=== PATIENT | female | born 1950 | race Caucasian/White ===

== ENCOUNTER 2019-05-19 09:17 | Inpatient (IN) | payer MEDICARE ==
[2019-05-19 09:53] LABS: #Basophils 0.1 thou/uL (0.0-0.2); #Eosinphils 0.1 thou/uL (0.0-0.7); #Lymphocytes 2.4 thou/uL (1.20-3.40); #Monocytes 0.6 thou/uL (0.11-0.59); #Neutrophils 11.7 thou/uL (1.40-6.50); %Basophils 0.3 % (0.0-1.0); %Eosinophils 0.3 % (0.0-10.0); %Lymphocytes 16.1 % (21.0-51.0); %Monocytes 4.1 % (0.0-10.0); %Neutrophils 79.1 % (42.0-75.0); Hemoglobin 15.1 g/dL (12.0-16.0); Mean Corpuscular HGB CONC 32.8 g/dL (32.0-36.0); Mean Corpuscular Hemoglobin 28.6 pg (27.0-31.0); Mean Corpuscular Volume 87.2 fL (78.0-98.0); Mean Platelet Volume 6.7 fL (7.4-10.4); Platelet Count 374 thou/uL (130-400); RBC Distribution Width 13.3 % (11.5-14.5); Red Blood Cell (RBC) Count 5.28 mill/uL (4.20-5.40); White Blood Cell (WBC) Count 14.8 thou/uL (4.8-10.8)
[2019-05-19] MEDS ORDERED: Morphine 4 MG/ML VIAL ONE (10:01)
[2019-05-19] MEDS ORDERED: Ondansetron PF 4 MG/2 ML Vial ONE (10:02)
[2019-05-19 10:09] LABS: ALT (SGPT) 33 U/L (8-55); AST (SGOT) 20 U/L (5-34); Albumin 4.6 g/dL (3.4-4.8); Alkaline Phosphatase 77 U/L (40-110); Anion Gap 17 mmol/L (10-20); BUN (Urea Nitrogen) 15 mg/dL (9.8-20.1); Bilirubin, Total 0.2 mg/dL (0.2-1.2); Calc. Creatinine Clearance 0 mL/min (70-130); Calcium 10.2 mg/dL (7.8-10.44); Carbon Dioxide 27 mmol/L (23-31); Chloride 97 mmol/L (98-107); Estimated GFR-MDRD 53; Globulin 2.9 g/dL (2.4-3.5); Glucose 141 mg/dL (80-115); Lipase 52 U/L (8-78); Protein, Total 7.5 g/dL (6.0-8.3); Sodium 137 mmol/L (136-145)
[2019-05-19 10:13] LABS: Bilirubin Negative (Negative); Blood, Urine Negative (Negative); Clarity Turbid (Clear); Glucose, Urine (Dipstick) Normal (Negative); Leukocyte 75 Leu/uL (Negative); Nitrite Negative (Negative); Protein, Urine (Dipstick) 20 mg/dL (Neg-Trace); Urobilinogen Normal mg/dL (Less than 2)
[2019-05-19 10:18] LABS: Bacteria/HPF 2+ HPF (None Seen); RBC/HPF None Seen HPF (0-3)
--- NOTE | 2019-05-19 10:31 | CT ---
CT Abdomen Pelvis W Con History: Epigastric pain Comparison: None. Findings: Lung bases are clear. No pericardial effusion. Abnormal hyperenhancement and because of the gastric antrum suggesting gastritis. Multiple stones within the dilated gallbladder with some mild wall thickening. There is also dilatati on of the intrahepatic and extrahepatic biliary system with the distal common bile duct measuring up to 8 mm. No hydronephrosis. No abnormal renal enhancing mass. No free fluid within the pelvis. Impression: Mild intrahepatic and extrahepatic biliary dilatation concerning for distal common bile duct stone. T he gallbladder is distended with wall thickening and numerous cholelithiasis likely, reservoir effect and less likely primary acute cholecystitis. ERCP or MRCP recommended as well as correlation w ith biliary enzymes.
[2019-05-19] MEDS ORDERED: Midazolam HCl 2 mg/2 ml Vial ONE (12:07)
[2019-05-19] MEDS ORDERED: Fentanyl 100 MCG/2 ML VIAL ONE ×6 (12:08→19:00)
[2019-05-19] MEDS ORDERED: Bupivacaine/Epinephrine 0.25% 30 ML VIAL ONE ×2 (12:15→16:48)
[2019-05-19] MEDS ORDERED: Iothalamate Meglumine 60% 50 ML VIAL FS ONE (12:15)
[2019-05-19] MEDS ORDERED: cefOXitin 2 GM VIAL ONE (12:38)
[2019-05-19] MEDS ORDERED: Sodium Chloride 0.9% 100 ML ONE (12:40)
[2019-05-19] MEDS ORDERED: SUGAMMADEX SODIUM 200 MG/2 ML VIAL ONE (14:17)
[2019-05-19] MEDS ORDERED: HYDROcodone/Acetaminophen 7.5/325 mg Tablet PO PRN ×2 (14:37)
[2019-05-19] MEDS ORDERED: Ondansetron PF 4 MG/2 ML Vial IVP PRN ×2 (14:37→20:16)
[2019-05-19] MEDS ORDERED: hydrALAZINE 20 MG/ML VIAL SLOW IVP PRN ×2 (14:37→20:16)
[2019-05-19] MEDS ORDERED: HumaLOG 300 UNITS/3 ML VIAL SC PRN ×2 (14:37→20:16)
[2019-05-19] MEDS ORDERED: Dextrose 5% in Water 1,000 ML IV PRN ×2 (14:37→20:16)
[2019-05-19] MEDS ORDERED: traMADol HCl 50 MG TAB PO PRN (14:37)
[2019-05-19] MEDS ORDERED: Mag-Al 1200 mg/1200 mg/30 ML UDCUP PO PRN ×2 (14:37→20:16)
[2019-05-19] MEDS ORDERED: Morphine 2 MG/ML SYRINGE SLOW IVP PRN (14:37)
[2019-05-19] MEDS ORDERED: Dextrose 50% Abboject 50 ML SYRINGE SLOW IVP PRN ×3 (14:37→20:16)
[2019-05-19] MEDS ORDERED: Morphine 4 MG/ML VIAL SLOW IVP PRN (14:37)
[2019-05-19] MEDS ORDERED: Calcium Carbonate 500 MG ChewTAB PO PRN ×2 (14:37→20:16)
[2019-05-19] MEDS ORDERED: Morphine 2 MG/ML SYRINGE ONE ×2 (14:58→15:11)
--- NOTE | 2019-05-19 15:05 | HP ---
CHIEF COMPLAINT: Cholecystitis. HISTORY OF PRESENT ILLNESS: This is a 69-year-old female with a history of upper abdominal pain, described as sharp 8/10, constant, and started after her hamburger for dinner last night. This is associated with nausea and vomiting. No diarrhea. She denies previous known history of gallstones, jaundice, or pancreatitis. PAST MEDICAL HISTORY: Includes tremors, GERD, peptic ulcer. PAST SURGICAL HISTORY: Includes appendectomy and . MEDICATIONS: Include, 1. Metoprolol. 2. Imipramine. 3. Mysoline. 4. Spironolactone. 5. Statin. 6. Abilify. ALLERGIES: METHOTREXATE. SOCIAL HISTORY: No smoking, alcohol, or other drugs. REVIEW OF SYSTEMS: Ten-system review of systems is otherwise negative unless described above. HEENT: Sclerae anicteric. Oropharynx clear. NECK: No lymphadenopathy. CHEST: Clear. HEART: Regular rate and rhythm. ABDOMEN: Soft. Tender right upper quadrant with localized guarding. No rebound. No abdominal or inguinal hernia. EXTREMITIES: No ischemia or edema to extremities. LABORATORY DATA: White blood cell count is elevated. Her liver function tests are normal. IMAGING STUDIES: CT scan shows dilated extra and intrahepatic bile ducts and gallstones, gallbladder wall thickening. ASSESSMENT: 1. Acute cholecystitis. 2. Tremor disorder. 3. Hypertension. PLAN: Laparoscopic cholecystectomy with intraoperative cholangiogram. Risks, benefits, and alternatives were discussed. She gives consent. We will do this today. 30 minutes spent in discussion and review of films with the patient. Job ID: [id number]
[2019-05-19] MEDS ORDERED: HYDROmorphone 2 MG/ML VIAL ONE (15:19)
--- NOTE | 2019-05-19 15:19 | OP ---
DATE OF PROCEDURE: 05/19/2019 PREOPERATIVE DIAGNOSIS: Acute cholecystitis. POSTOPERATIVE DIAGNOSIS: Acute cholecystitis. PROCEDURE PERFORMED: Laparoscopic cholecystectomy with attempted cholangiogram. ANESTHESIA: General. ESTIMATED BLOOD LOSS: None. COMPLICATIONS: None. SPECIMENS: Gallbladder. FINDINGS: Acute cholecystitis. DESCRIPTION OF PROCEDURE: The patient was taken to the operating room and laid supine on the operating room table. After general anesthetic was obtained, the abdomen was prepped and draped in a sterile fashion. Straight incision was made above the umbilicus. Cautery was used to dissect down to and score the fascia. Abdominal cavity was entered bluntly with a Laura clamp. Holding stitch of PDS placed on each side of the fascia. Siva trocar was placed. High-flow pneumoperitoneum was obtained. An upper midline 5 mm port and two right upper quadrant 5 mm ports were placed under direct visualization. The gallbladder was retracted from the gallbladder fossa. There was acute cholecystitis. Needle was used to decompress the gallbladder so it could be grasped. The peritoneum was opened anteriorly and posteriorly. Critical view of triangle was seen showing only the cystic duct and cystic artery branching medial to lateral and no other branching structures. The clip was placed on the cystic duct. A small ductotomy was made just proximal to that. Cholangiocatheter was brought in through a separate stab incision and a cholangiogram was attempted to be performed. The catheter cannot be passed into the cystic duct. There was obstruction down near its confluence with the common bile duct. Two clips were placed proximally and one distally, and the cystic duct was cut using laparoscopic scissors. Cautery was used to dissect the gallbladder and gallbladder fossa. Gallbladder was placed in an EndoCatch bag and brought out through the Siva. All port sites were infiltrated using local anesthetic. Meticulous hemostasis was obtained in the liver bed. There was no ongoing bleeding. The right upper quadrant was irrigated using sterile solution. All port sites were infiltrated using local anesthetic. All port sites were removed under camera visualization. Pneumoperitoneum was let down. PDS was used to close the fascial defect above the umbilicus. All incisions were irrigated and closed using 4-0 Monocryl and Dermabond. The patient was sent to Recovery room in stable condition. All instrument counts, needle counts, and lap counts were correct. Job ID: [id number]
[2019-05-19] MEDS ORDERED: Heparin 25,000 units/D5W 500 ML ONE (16:46)
--- NOTE | 2019-05-19 16:58 | PRG ---
DATE OF SERVICE: 05/19/2019 SUBJECTIVE: Mrs. Garcia remains hypotensive, tachycardic postop. She is pale and has a distended abdomen. PLAN: To return to the operating room emergency for laparoscopy. We will type and cross for 2 units. Job ID: [id number]
[2019-05-19] MEDS ORDERED: Norepinephrine 4 MG/4 ML VIAL ONE (17:08)
[2019-05-19] MEDS ORDERED: Phenylephrine HCL 10 MG/ML VIAL ONE (17:08)
[2019-05-19 17:15] LABS: Hemoglobin 11.4 g/dL (12.0-16.0)
[2019-05-19] MEDS ORDERED: Naloxone HCl 0.4 mg/ml Vial ONE (18:16)
[2019-05-19] MEDS ORDERED: Ondansetron HCl/PF 4 MG/2 ML Vial IVP PRN (18:36)
[2019-05-19] MEDS ORDERED: Promethazine HCl 25 MG/ML VIAL SLOW IVP PRN (18:36)
[2019-05-19] MEDS ORDERED: Promethazine HCl 25 MG/ML VIAL IM PRN (18:36)
[2019-05-19] MEDS ORDERED: Sodium Chloride 0.9% 1,000 ML IV SCH (18:45)
[2019-05-19] MEDS ORDERED: Fentanyl 100 MCG/2 ML VIAL SLOW IVP PRN (20:16)
[2019-05-19 20:34] VITALS: BMI 33.7
[2019-05-19] MEDS ORDERED: Non-Formulary Medication 1 EACH PO PRN (20:40)
[2019-05-19] MEDS ORDERED: Morphine Sulfate 2 MG/ML SYRINGE SLOW IVP PRN (20:40)
[2019-05-19] MEDS ORDERED: HYDROmorphone 2 MG/ML VIAL SLOW IVP PRN (20:40)
[2019-05-19] MEDS ORDERED: Primidone 50 MG TAB PO SCH (21:00)
[2019-05-19] MEDS ORDERED: Famotidine/PF 20 mg/2ml Vial SLOW IVP SCH (21:00)
[2019-05-19] MEDS ORDERED: Famotidine 20 MG TAB PO SCH (21:00)
[2019-05-19] MEDS: Sodium Chloride 0.9% 1,000 ML IV SCH (21:08)
[2019-05-19] MEDS: Fentanyl 100 MCG/2 ML VIAL SLOW IVP PRN ×2 (21:13→23:32)
[2019-05-19] MEDS: Famotidine/PF 20 mg/2ml Vial SLOW IVP SCH (21:13)
[2019-05-19] MEDS: Acetaminophen 1,000 MG in Premix Bag 1 BAG IVPB PRN (21:16)
[2019-05-19] MEDS: Famotidine 20 MG TAB PO SCH (22:39)
--- NOTE | 2019-05-19 23:52 | OP ---
DATE OF PROCEDURE: 05/19/2019 PREOPERATIVE DIAGNOSES: Postoperative hypotension and postoperative bleeding. POSTOPERATIVE DIAGNOSES: Postoperative hypotension and postoperative bleeding. PROCEDURES PERFORMED: Diagnostic laparoscopy, abdominal washout 700 mL of old blood, and control of bleeding to posterior cystic artery branch. ANESTHESIA: General. BLOOD LOSS: 700 mL of old blood. COMPLICATIONS: None. FINDINGS: There was a posterior branch of the cystic artery with pulsatile bleeding. The clips on the cystic duct and cystic artery were intact. There was no bleeding in the liver bed. No bleeding to the liver. No bleeding to the port sites or the falciform ligament. DESCRIPTION OF PROCEDURE: The patient was taken emergently from PACU back to the operating room. After general anesthetic was obtained, a Borges was placed. The abdomen was shaved, prepped, and draped in a sterile fashion. The incision above the umbilicus was reopened. The PDS suture was removed and the balloon trocar was able to be placed easily and the balloon inflated. High-flow pneumoperitoneum was obtained. The 3 upper abdominal 5-mm ports were reopened and five 10-mm ports were placed. There was a lot of old blood in the abdomen. This was appearing to try to clot. This was irrigated out up to the liver bed. In the bottom of the liver bed, in the area of the cystic duct and cystic artery, there was a pulsatile bleeder. This was a posterior cystic artery branch. This was clipped with 2 clips, it stopped. All the blood was irrigated out of the upper abdomen. The abdomen was irrigated using 2 L of sterile solution. Daryn and bleeding starch were placed in the liver bed. A 19 drain was brought out through the one of the right upper quadrant incisions and connected to a JULIETTE bulb. There was no bleeding from any other areas in the abdomen. All port sites were removed under direct visualization without bleeding. Pneumoperitoneum was let down. PDS was used to close the fascial defect above the umbilicus. All incisions were irrigated and closed using 4-0 Monocryl and Dermabond. The patient was sent to the recovery room stable. She will be ultimately stayed in the unit tonight. She did start 2 units of blood in the operating room. Job ID: [id number]
[2019-05-20] MEDS: Fentanyl 100 MCG/2 ML VIAL SLOW IVP PRN ×7 (01:55→22:12)
[2019-05-20] MEDS: Sodium Chloride 0.9% 1,000 ML IV SCH ×3 (03:19→22:11)
[2019-05-20] MEDS: Acetaminophen 1,000 MG in Premix Bag 1 BAG IVPB PRN ×2 (03:19→13:02)
[2019-05-20 07:29] LABS: ALT (SGPT) 289 U/L (8-55); AST (SGOT) 167 U/L (5-34); Albumin 2.8 g/dL (3.4-4.8); Alkaline Phosphatase 69 U/L (40-110); Anion Gap 12 mmol/L (10-20); BUN (Urea Nitrogen) 14 mg/dL (9.8-20.1); Bilirubin, Total 0.3 mg/dL (0.2-1.2); Calc. Creatinine Clearance 77 mL/min (70-130); Calcium 7.6 mg/dL (7.8-10.44); Carbon Dioxide 21 mmol/L (23-31); Chloride 109 mmol/L (98-107); Estimated GFR-MDRD 57; Globulin 2.1 g/dL (2.4-3.5); Glucose 157 mg/dL (80-115); Lipase 11 U/L (8-78); Potassium 4.6 mmol/L (3.5-5.1); Protein, Total 4.9 g/dL (6.0-8.3); Sodium 137 mmol/L (136-145)
--- NOTE | 2019-05-20 08:06 | PRG ---
DATE OF SERVICE: 05/20/2019 SUBJECTIVE: Ms. Garcia was off pressors overnight and hemodynamically stable. Her pulse remained in the 110s to 120s, but systolic blood pressure is over 110. She is complaining of pain. OBJECTIVE: VITAL SIGNS: Blood pressure is 107/55, pulse 123, respirations are 30, and O2 saturation 95% on 2 L. Urine output overnight is 470. JULIETTE drain 335, turning serosanguineous. ABDOMEN: Soft, minimally distended. LABORATORY DATA: Her CBC is still pending this morning. Her last hemoglobin was 11. Sodium 137, creatinine 0.97, glucose 157, bilirubin is normal, but her AST and ALT are up a little bit at 167 and 289. Her alkaline phosphatase is normal. Her lipase is normal. ASSESSMENT: Postop day 1, laparoscopic cholecystectomy for acute cholecystitis with emergent return to the operating room for bleeding, stable. PLAN: I do not know why her CBC is not resulted this morning. We will make sure that is done, transfuse if due to her tachycardia if the hemoglobin is less than 10. I will allow her to do clear liquids. Job ID: [id number]
[2019-05-20] MEDS: Famotidine 20 MG TAB PO SCH ×2 (08:27→20:44)
[2019-05-20] MEDS: HYDROcodone/Acetaminophen 7.5/325 mg Tablet PO PRN ×3 (08:39→20:43)
[2019-05-20] MEDS: Famotidine/PF 20 mg/2ml Vial SLOW IVP SCH ×2 (08:42→19:51)
[2019-05-20 09:00] LABS: #Basophils 0.1 thou/uL (0.0-0.2); #Lymphocytes 1.8 thou/uL (1.20-3.40); #Monocytes 0.7 thou/uL (0.11-0.59); #Neutrophils 10.8 thou/uL (1.40-6.50); %Basophils 0.4 % (0.0-1.0); %Eosinophils 0.2 % (0.0-10.0); %Lymphocytes 13.4 % (21.0-51.0); %Monocytes 5.4 % (0.0-10.0); %Neutrophils 80.7 % (42.0-75.0); Hemoglobin 11.2 g/dL (12.0-16.0); Mean Corpuscular HGB CONC 33.3 g/dL (32.0-36.0); Mean Corpuscular Hemoglobin 29.2 pg (27.0-31.0); Mean Corpuscular Volume 87.6 fL (78.0-98.0); Mean Platelet Volume 7.3 fL (7.4-10.4); Platelet Count 246 thou/uL (130-400); RBC Distribution Width 13.7 % (11.5-14.5); Red Blood Cell (RBC) Count 3.84 mill/uL (4.20-5.40); White Blood Cell (WBC) Count 13.3 thou/uL (4.8-10.8)
[2019-05-20] MEDS ORDERED: lamoTRIgine 25 MG TAB PO SCH (09:00)
[2019-05-20] MEDS ORDERED: ACITRETIN 25 MG PO SCH (09:00)
[2019-05-20] MEDS ORDERED: Aripiprazole 10 MG TAB PO SCH (09:00)
[2019-05-21] MEDS: Fentanyl 100 MCG/2 ML VIAL SLOW IVP PRN (04:50)
[2019-05-21] MEDS: Famotidine 20 MG TAB PO SCH ×2 (08:18→20:17)
[2019-05-21] MEDS: Famotidine/PF 20 mg/2ml Vial SLOW IVP SCH ×2 (08:19→21:00)
[2019-05-21] MEDS: HYDROcodone/Acetaminophen 7.5/325 mg Tablet PO PRN ×3 (08:19→20:16)
[2019-05-21 08:43] LABS: #Lymphocytes 1.6 thou/uL (1.20-3.40); #Monocytes 0.7 thou/uL (0.11-0.59); #Neutrophils 11.2 thou/uL (1.40-6.50); %Basophils 0.1 % (0.0-1.0); %Eosinophils 0.3 % (0.0-10.0); %Lymphocytes 12.1 % (21.0-51.0); %Monocytes 5.3 % (0.0-10.0); %Neutrophils 82.2 % (42.0-75.0); Hemoglobin 10.3 g/dL (12.0-16.0); Mean Corpuscular HGB CONC 33.5 g/dL (32.0-36.0); Mean Corpuscular Hemoglobin 29.4 pg (27.0-31.0); Mean Corpuscular Volume 87.7 fL (78.0-98.0); Mean Platelet Volume 6.9 fL (7.4-10.4); Platelet Count 199 thou/uL (130-400); RBC Distribution Width 13.4 % (11.5-14.5); White Blood Cell (WBC) Count 13.6 thou/uL (4.8-10.8)
--- NOTE | 2019-05-21 08:59 | PRG ---
DATE OF SERVICE: 05/21/2019 SUBJECTIVE: Ms. Garcia is complaining of pain at her drain site. She was up a few times yesterday. She is upset because her pain pills have not come yet this morning. She feels bloated, but she is hungry for more than the clear liquids. OBJECTIVE: VITAL SIGNS: She is still tachy at 110 to 120. She is afebrile. Blood pressure 120/69. Her drain output was 285 for the day. Borges has brisk output of 2200 for the day. ABDOMEN: Soft. It is distended. The wounds are healing well. JULIETTE drainage is turning serosanguineous. LABORATORY DATA: White blood cell count is 13, her hemoglobin is 10. Her chemistry is still pending at this time. ASSESSMENT: Postop laparoscopic cholecystectomy with take back for bleeding, now with tachycardia and complaints of pain, but stable drain output. PLAN: Await for liver function test results. I was not able to do a cholangiogram at the time of surgery, so if her liver function tests are more elevated today, she will need MRCP plus or minus GI consult with Dr. Longoria. Otherwise, we will advance her diet and make her ambulate better. Job ID: [id number]
[2019-05-21] MEDS ORDERED: ACITRETIN 10 MG PO SCH (09:00)
[2019-05-21 09:06] LABS: ALT (SGPT) 159 U/L (8-55); AST (SGOT) 64 U/L (5-34); Alkaline Phosphatase 71 U/L (40-110); Anion Gap 12 mmol/L (10-20); BUN (Urea Nitrogen) 9 mg/dL (9.8-20.1); Bilirubin, Total 0.3 mg/dL (0.2-1.2); Calc. Creatinine Clearance 101 mL/min (70-130); Calcium 8.4 mg/dL (7.8-10.44); Carbon Dioxide 21 mmol/L (23-31); Chloride 105 mmol/L (98-107); Estimated GFR-MDRD 78; Globulin 2.5 g/dL (2.4-3.5); Glucose 89 mg/dL (80-115); Potassium 4.2 mmol/L (3.5-5.1); Protein, Total 5.5 g/dL (6.0-8.3); Sodium 134 mmol/L (136-145)
[2019-05-21] MEDS: Sodium Chloride 0.9% 1,000 ML IV SCH ×2 (10:53→18:10)
[2019-05-22] MEDS: Sodium Chloride 0.9% 1,000 ML IV SCH ×2 (02:19→11:18)
[2019-05-22] MEDS: HYDROcodone/Acetaminophen 7.5/325 mg Tablet PO PRN ×3 (02:24→18:13)
[2019-05-22 05:41] LABS: ALT (SGPT) 118 U/L (8-55); AST (SGOT) 69 U/L (5-34); Albumin 2.6 g/dL (3.4-4.8); Alkaline Phosphatase 88 U/L (40-110); Anion Gap 12 mmol/L (10-20); BUN (Urea Nitrogen) 8 mg/dL (9.8-20.1); Bilirubin, Total 0.5 mg/dL (0.2-1.2); Calc. Creatinine Clearance 113 mL/min (70-130); Calcium 8.1 mg/dL (7.8-10.44); Carbon Dioxide 21 mmol/L (23-31); Chloride 109 mmol/L (98-107); Estimated GFR-MDRD 89; Globulin 2.4 g/dL (2.4-3.5); Glucose 97 mg/dL (80-115); Potassium 4.2 mmol/L (3.5-5.1); Sodium 138 mmol/L (136-145)
[2019-05-22 06:48] LABS: Hemoglobin 8.3 g/dL (12.0-16.0); Mean Corpuscular HGB CONC 32.6 g/dL (32.0-36.0); Mean Corpuscular Hemoglobin 28.8 pg (27.0-31.0); Mean Corpuscular Volume 88.4 fL (78.0-98.0); Mean Platelet Volume 7.4 fL (7.4-10.4); Platelet Count 195 thou/uL (130-400); RBC Distribution Width 13.3 % (11.5-14.5); Red Blood Cell (RBC) Count 2.86 mill/uL (4.20-5.40); White Blood Cell (WBC) Count 11.2 thou/uL (4.8-10.8)
--- NOTE | 2019-05-22 07:46 | PDOC.GSPN ---
Surgery Progress Note: Subj - Subjective Narrative: Patient is a 69 yof POD 3 complaining of pain and irritation of drainage site. The pain is described as 2/10 and worsens on movement. Laying still makes the pain better. The pain does not radiate and is described as irritating. She began passing flatus last night but has still yet to have a bowel movement. Endorses dizziness one time yesterday afternoon when she was sitting upright in her chair. Denies dizziness since episode. Denies chest pain, shortness of breath, sharp abdominal pain or leg swelling. Surgery Progress Note: Obj - Vital signs Vital signs: Vital Signs - Most Recent Temp Pulse Resp BP Pulse Ox 98.9 F 96 16 108/69 94 L 05/22/19 03:53 05/22/19 03:53 05/22/19 03:53 05/22/19 03:53 05/22/19 03:53 - Physical Exam General: no distress, other (Patient appears fatigued lying in bed but in no acute distress.) Cardiovascular: regular rate and rhythm Respiratory: clear to auscultation Abdomen: soft, non tender Wound: healing well, other (Tube is draining well) Surgery Progress Note: Results - Labs Result Diagrams: 05/22/19 04:04 05/22/19 04:04 Lab results: Laboratory Results - last 24 hr 05/21/19 05/22/19 05/22/19 20:23 04:04 04:04 WBC 11.2 H RBC 2.86 L Hgb 8.3 L Hct 25.3 L MCV 88.4 MCH 28.8 MCHC 32.6 RDW 13.3 Plt Count 195 MPV 7.4 Sodium 138 Potassium 4.2 Chloride 109 H Carbon Dioxide 21 L Anion Gap 12 BUN 8 L Creatinine 0.66 Estimated GFR (MDRD) 89 Glucose 97 POC Glucose 91 Calcium 8.1 Total Bilirubin 0.5 AST 69 H ALT 118 H Alkaline Phosphatase 88 Serum Total Protein 5.0 L Albumin 2.6 L Globulin 2.4 Albumin/Globulin Ratio 1.1 L 05/22/19 05:28 WBC RBC Hgb Hct MCV MCH MCHC RDW Plt Count MPV Sodium Potassium Chloride Carbon Dioxide Anion Gap BUN Creatinine Estimated GFR (MDRD) Glucose POC Glucose 97 Calcium Total Bilirubin AST ALT Alkaline Phosphatase Serum Total Protein Albumin Globulin Albumin/Globulin Ratio Surgery Progress Note: A/P - Problem (1) Cholecystitis Current Visit: Yes Code(s): K81.9 - CHOLECYSTITIS, UNSPECIFIED Status: Acute - Plan Plan: Get patient ambulating with PT as tolerated. Possibly remove drainage tube this afternoon. Remove chase as soon as ambulatory to reduce risk of UTI. Addendum - Physician - Physician Attestation Date/Time: 05/22/19 1045 I personally performed or re-performed the physical examination and medical decision making. I have verified all student documentation or findings, including history, physical exam and/or medical decision making. Doing better. Still tachy so will transfuse one more unit after MRCP She has persistent elevation of LFT's(mild) but dilated CBD on preop xray. unable to do cholangiogram, so MRCP
[2019-05-22 07:52] LABS: Band 16 % (5-11); Eosinophils 2 % (0-10); Lymphocytes 16 % (21-51); MDiff Complete? YES; Monocytes 1 % (0-10); Neutrophil 65 % (42-75); Platelet Morphology Comment Appears Adequate; Polychromasia SLIGHT = 2-3 cells (100X) (0-2/hpf)
[2019-05-22] MEDS: Famotidine 20 MG TAB PO SCH ×2 (08:49→21:12)
[2019-05-22] MEDS: Famotidine/PF 20 mg/2ml Vial SLOW IVP SCH ×2 (10:42→21:12)
--- NOTE | 2019-05-22 17:49 | MRI ---
MRI ABDOMEN NONCONTRAST CLINICAL HISTORY: Abdominal pain, dilated common duct Reference made to 05/19/2019 CT exam FINDINGS: There is nonvisualization of the gallbladder. Surrounding edema is present. There is also fluid signa l of the gallbladder fossa. The common duct measures 1 cm. No obvious, focal filling defect. No abnormal dilatation of the pancreatic duct. There is complex fluid within the right paracolic gutter abutting the inferior aspect of the liver. Scattered retroperitoneal edema is present. No focal hepatic or splenic lesion. Pancreas is unremarkable. No evidence of adrenal mass or acute renal patho logy. Incidental note of bilateral pulmonary parenchymal consolidation and pleural fluid. IMPRESSION: Evidence of cholecystectomy with complex fluid of the abdomen which may be postsurgical. Entity such as bile leak cannot be excluded on the basis of this exam. If there is need for further imaging in this regard, consider HIDA scan. No focal filling defect of the common duct, which measures 1 cm in diameter. Transcribed Date/Time: 05/22/2019 6:15 PM
[2019-05-22] MEDS ORDERED: Atorvastatin Calcium 40 MG TAB PO SCH (22:30)
[2019-05-22] MEDS ORDERED: Spironolactone 25 MG TAB PO SCH (22:30)
[2019-05-22] MEDS ORDERED: Aripiprazole 10 MG TAB PO SCH (22:30)
[2019-05-22] MEDS ORDERED: Primidone 50 MG TAB PO SCH (22:30)
[2019-05-23] MEDS: HYDROcodone/Acetaminophen 7.5/325 mg Tablet PO PRN ×3 (00:07→11:52)
[2019-05-23] MEDS: Sodium Chloride 0.9% 1,000 ML IV SCH ×2 (02:46→04:13)
--- NOTE | 2019-05-23 07:05 | PDOC.GSPN ---
Surgery Progress Note: Subj - Subjective Patient reports: feels better, positive flatus, nausea, still having pain, tolerating a regular diet Narrative: Patient is a 69 year old female POD 4 complaining of pain at her tube incision site. The pain is described as a 6/10 with movement, and experiences no pain at all with rest. The pain does not radiate. She was able to tolerate diet of chicken and mashed potatoes last night without nausea or vomiting. Still hasn't had a bowel movement but reports flatus. Borges catheter is out and she is able to walk to and from bathroom without any dizziness. Denies chest pain, shortness of breath, vomiting or sharp abdominal pain. Surgery Progress Note: Obj - Vital signs Vital signs: Vital Signs - Most Recent Temp Pulse Resp BP Pulse Ox 98.3 F 98 16 120/75 93 L 05/23/19 03:06 05/23/19 03:06 05/23/19 03:06 05/23/19 03:06 05/23/19 03:06 - Physical Exam General: no distress (Patient appears comfortable lying in hospital bed.) Cardiovascular: regular rate and rhythm Respiratory: clear to auscultation Abdomen: soft, positive bowel sounds Psychiatric: speech is normal Wound: healing well Surgery Progress Note: Results - Labs Result Diagrams: 05/22/19 04:04 05/22/19 04:04 Lab results: Laboratory Results - last 24 hr 05/19/19 05/22/19 05/23/19 17:05 19:12 00:14 POC Glucose 114 H 96 Crossmatch See Detail 05/23/19 05:07 POC Glucose 116 H Crossmatch Surgery Progress Note: A/P - Problem (1) Cholecystitis Current Visit: Yes Code(s): K81.9 - CHOLECYSTITIS, UNSPECIFIED Status: Acute
[2019-05-23] MEDS ORDERED: metFORMIN 500 MG TAB PO SCH (08:00)
[2019-05-23] MEDS ORDERED: Spironolactone 25 MG TAB PO SCH (08:00)
[2019-05-23] MEDS ORDERED: Escitalopram Oxalate 10 mg Tablet PO SCH (09:00)
[2019-05-23] MEDS ORDERED: Aripiprazole 10 MG TAB PO SCH (09:00)
[2019-05-23] MEDS ORDERED: lamoTRIgine 25 MG TAB PO SCH (09:00)
[2019-05-23] MEDS: Famotidine/PF 20 mg/2ml Vial SLOW IVP SCH (09:08)
[2019-05-23] MEDS: Famotidine 20 MG TAB PO SCH (09:08)
[2019-05-23 09:39] LABS: Hemoglobin 9.9 g/dL (12.0-16.0)
--- NOTE | 2019-05-23 09:43 | DIS ---
DATE OF ADMISSION: 05/19/2019 DATE OF DISCHARGE: 05/23/2019 ADMITTING DIAGNOSES: Acute cholecystitis, dilation of common bile duct. DISCHARGE DIAGNOSES: Acute cholecystitis, dilation of common bile duct. PROCEDURES PERFORMED: Laparoscopic cholecystectomy by Miguel. Complicated by postop bleeding, taken back to surgery for reexploration and clip placement on posterior branch of cystic artery. CONDITION ON DISCHARGE: Improved. HOSPITAL COURSE: The patient was hypotensive postop, was taken back to the operating room for evacuation of hematoma. She had dilated common bile duct, but normal LFT. She had MRCP on 05/22/2019, which revealed no obvious obstruction of her bile duct. She had fluid collection in her abdomen on that MRCP, but she has known hematoma in the gallbladder fossa. Her JULIETTE drain which was not putting out bloody material was removed yesterday. Her hemoglobin is stabilized. She is discharged home. She will follow up with me in 2 weeks. Prescriptions for Dariel Lima sent to [facility] in [place]. Job ID: [id number]
[2019-05-23 12:41] VITALS: BP 124/71; TEMP 98.3
[2019-05-23] MEDS ORDERED: Primidone 50 MG TAB PO SCH (21:00)
[2019-05-23] MEDS ORDERED: Atorvastatin Calcium 40 MG TAB PO SCH (21:00)
[2019-05-24] MEDS ORDERED: ACITRETIN 25 MG PO SCH (09:00)
[2019-05-25] MEDS ORDERED: ACITRETIN 10 MG PO SCH (09:00)
--- NOTE | 2019-05-27 15:44 | EKG ---
Test Reason : Blood Pressure : / mmHG Vent. Rate : 076 BPM Atrial Rate : 076 BPM P-R Int : 162 ms QRS Dur : 084 ms QT Int : 378 ms P-R-T Axes : 065 018 069 degrees QTc Int : 425 ms Normal sinus rhythm Normal ECG Confirmed by MICHAEL HAMPTON ([id number]), supervising editor news reel ADELINE GROVER ([id number]) on 05/27/2019 3:43:56 PM Referred By: Confirmed By:MICHAEL HAMPTON
== END 2019-05-23 13:37 | disposition home or self-care (01) | DRG 418 ==
LOC: ERS 09:17 → SDC 12:35 → SURG B 14:37 → SURG A 16:50 → CCU 20:20 → SURG B 05-20 09:43
PROVIDERS: ADMIT Surgery; ATTEND Surgery
PROC: 0FT44ZZ Resection of Gallbladder, Percutaneous Endoscopic Approach (ICD-10-PCS; principal; 2019-05-19)
PROC: 0W3P4ZZ Control Bleeding in Gastrointestinal Tract, Percutaneous Endoscopic Approach (ICD-10-PCS; 2019-05-19)
PROC: BF131ZZ Fluoroscopy of Gallbladder and Bile Ducts using Low Osmolar Contrast (ICD-10-PCS; 2019-05-19)
DX: K80.62 Calculus of gallbladder and bile duct with acute cholecystitis without obstruction (principal); K91.840 Postprocedural hemorrhage of a digestive system organ or structure following a digestive system procedure; I95.81 Postprocedural hypotension; R25.1 Tremor, unspecified; I10 Essential (primary) hypertension; K21.9 Gastro-esophageal reflux disease without esophagitis; Z87.11 Personal history of peptic ulcer disease; Z90.49 Acquired absence of other specified parts of digestive tract; Y83.9 Surgical procedure, unspecified as the cause of abnormal reaction of the patient, or of later complication, without mention of misadventure at the time of the procedure; Y73.8 Miscellaneous gastroenterology and urology devices associated with adverse incidents, not elsewhere classified
CPT/HCPCS: 36415; 36416; 36430; 74177; 74181; 80053; 81003; 81015; 83690; 84484; 85018; 85025; 86850; 86900; 86901; 88304; 93005; 96361; 96374; 96375; J0131; J0694; J1170; J1610; J1642; J1644; J2250; J2270; J2310; J2370; J2405; J3010; J3490; P9016; S0028

== ENCOUNTER 2019-05-28 15:34 | Inpatient (IN) | payer MEDICARE ==
[~2019-05-28 15:34] MED LIST: ISOVUE-370 76%-LOCM 1 ML ONE
[2019-05-28] MEDS ORDERED: Fentanyl 100 MCG/2 ML VIAL ONE ×2 (16:25→18:41)
[2019-05-28] MEDS ORDERED: Ondansetron PF 4 MG/2 ML Vial ONE (16:26)
--- NOTE | 2019-05-28 16:41 | RAD ---
EXAM: Single view of the chest HISTORY: Abdominal pain and shortness of breath COMPARISON: None FINDINGS: Single view of the chest shows a normal sized cardiomediastinal silhouette. Atelectasis is seen in the lung bases. There is no evidence of consolidation, mass, or pleural effusion. The bones are unremarkable. IMPRESSION: Bibasilar atelectasis
[2019-05-28 17:01] LABS: Hemoglobin 10.1 g/dL (12.0-16.0); Mean Corpuscular HGB CONC 33.3 g/dL (32.0-36.0); Mean Corpuscular Volume 90.1 fL (78.0-98.0); Mean Platelet Volume 7.1 fL (7.4-10.4); Platelet Count 626 thou/uL (130-400); RBC Distribution Width 14.3 % (11.5-14.5); Red Blood Cell (RBC) Count 3.36 mill/uL (4.20-5.40); White Blood Cell (WBC) Count 20.2 thou/uL (4.8-10.8)
[2019-05-28 17:17] LABS: Band 7 % (5-11); Lymphocytes 9 % (21-51); MDiff Complete? YES; Metamyelocyte 3 % (0-0); Monocytes 5 % (0-10); Myelocyte 1 % (0-0); Neutrophil 74 % (42-75); Platelet Morphology Comment Appears Increased; Polychromasia SLIGHT = 2-3 cells (100X) (0-2/hpf); Reactive Lymphocytes 1 % (0-10)
[2019-05-28 17:21] LABS: ALT (SGPT) 33 U/L (8-55); AST (SGOT) 24 U/L (5-34); Albumin 2.9 g/dL (3.4-4.8); Alkaline Phosphatase 106 U/L (40-110); Anion Gap 14 mmol/L (10-20); BUN (Urea Nitrogen) 8 mg/dL (9.8-20.1); Bilirubin, Total 0.6 mg/dL (0.2-1.2); Calc. Creatinine Clearance 0 mL/min (70-130); Calcium 8.7 mg/dL (7.8-10.44); Carbon Dioxide 23 mmol/L (23-31); Chloride 99 mmol/L (98-107); Estimated GFR-MDRD Greater than 90; Globulin 3.7 g/dL (2.4-3.5); Glucose 101 mg/dL (80-115); Lipase 62 U/L (8-78); Potassium 4.2 mmol/L (3.5-5.1); Protein, Total 6.6 g/dL (6.0-8.3); Sodium 132 mmol/L (136-145)
[2019-05-28 17:42] LABS: Bilirubin Negative (Negative); Blood, Urine Negative (Negative); Clarity Clear (Clear); Glucose, Urine (Dipstick) Normal (Negative); Leukocyte Negative Leu/uL (Negative); Nitrite Negative (Negative); Protein, Urine (Dipstick) 20 mg/dL (Neg-Trace); Urobilinogen Normal mg/dL (Less than 2)
--- NOTE | 2019-05-28 17:48 | CT ---
CT ANGIOGRAM THORAX WITH CONTRAST: (CTA pulmonary angiogram) DATE: 05/28/2019 HISTORY: 69-year-old female with dyspnea TECHNIQUE: IV injection of iodinated contrast. Scan acquisition timing attempted to coincide with iodinated contrast bolus reaching maximal density in pulmonary arteries. 3-D MIP reconstructions. FINDINGS: No pulmonary thromboembolism. No thoracic aortic dissection, aneurysm, or rupture. Pectus excavatum. Right pleural effusion occupies approximately 25% volume right hemithoracic cavity. Left pleural effusion occupies approximately 5-10% volume left hemithoracic cavity. Adjacent small consolidations in basilar bilateral lower lobes, probably atelectasis, right greater than left. Pneumonia not ruled out but less likely. No pulmonary edema in upper lobes. No pneumothorax. Trachea and bilateral mainstem bronchi are patent and clear. No pericardial effusion or mediastinal lymphadenopathy. IMPRESSION: 1) no pulmonary thromboembolism. 2) small bilateral pleural effusions, right greater than left, with adjacent airspace densities. 3) pectus excavatum.
--- NOTE | 2019-05-28 17:50 | CT ---
CT Abdomen Pelvis W Con: 05/28/2019 4:23 PM CLINICAL INFORMATION: Abdominal pain with shortness of breath and bilateral lower summary swelling. R ecent laparoscopic cholecystectomy. COMPARISON: 05/19/2019 TECHNIQUE: Multiple contiguous axial images were obtained and a CT of the abdomen and pelvis with IV contrast. C oronal and sagittal reformats were performed. FINDINGS: Lower Chest: See dedicated CT of the chest for findings in the thorax. Abdomen: Liver: within normal limits. Bile Ducts: Normal caliber. Gallbladder: Absent. There is fluid in the region of the mony hepatis. There is also a multiloculate d fluid collection along the inferior tip of the liver which appears to have an enhancing rim and may be loculated. This measures 10.2 cm in greatest dimension. This has a mean Hounsfield unit value of 31. Pancreas: within normal limits. Spleen: within normal limits. Adrenals: within normal limits. Kidneys: within normal limits. Pelvis: Reproductive Organs: No pelvic masses. Ureters: within normal limits. Bladder: within normal limits. Peritoneum: No ascites or free air, no fluid collection. Bowel: Normal caliber. Mesentery and Retroperitoneum: No enlarged mesenteric or retroperitoneal lymph nodes. Vessels: Atherosclerotic calcifications. Abdominal Wall: within normal limits. Bones: Degenerative changes in the spine. IMPRESSION: Fluid collection along the right liver may represent a biloma, seroma, hematoma, or developing absces s. The higher Hounsfield unit value favors the latter diagnoses. Correlate with white blood cell count.
[2019-05-28] MEDS ORDERED: Piperacillin/Tazobactam 4.5 GM VIAL ONE (18:41)
[2019-05-28] MEDS ORDERED: Sodium Chloride 0.9% 100 ML ONE (18:41)
[2019-05-28] MEDS ORDERED: Fentanyl 100 MCG/2 ML VIAL SLOW IVP PRN (20:24)
[2019-05-28] MEDS: Sodium Chloride 0.9% 1,000 ML IV SCH (21:01)
[2019-05-28] MEDS ORDERED: Morphine 2 MG/ML SYRINGE SLOW IVP PRN (21:05)
[2019-05-28] MEDS ORDERED: Ondansetron PF 4 MG/2 ML Vial SLOW IVP PRN (21:05)
[2019-05-28] MEDS: Morphine 4 MG/ML VIAL SLOW IVP PRN (22:20)
[2019-05-29] MEDS: Piperacillin/Tazobactam 3.375 GM in Sodium Chloride 0.9% 100 ML IVPB SCH ×5 (00:22→23:46)
[2019-05-29 03:09] VITALS: BMI 34.7
[2019-05-29] MEDS: Morphine 4 MG/ML VIAL SLOW IVP PRN ×4 (03:11→17:08)
[2019-05-29 04:47] LABS: #Eosinphils 0.5 thou/uL (0.0-0.7); #Lymphocytes 1.8 thou/uL (1.20-3.40); #Monocytes 1.2 thou/uL (0.11-0.59); #Neutrophils 13.7 thou/uL (1.40-6.50); %Basophils 0.1 % (0.0-1.0); %Eosinophils 3.1 % (0.0-10.0); %Lymphocytes 10.2 % (21.0-51.0); %Monocytes 7.1 % (0.0-10.0); %Neutrophils 79.4 % (42.0-75.0); Hemoglobin 9.4 g/dL (12.0-16.0); Mean Corpuscular HGB CONC 32.2 g/dL (32.0-36.0); Mean Corpuscular Hemoglobin 28.9 pg (27.0-31.0); Mean Corpuscular Volume 89.8 fL (78.0-98.0); Platelet Count 631 thou/uL (130-400); RBC Distribution Width 14.2 % (11.5-14.5); Red Blood Cell (RBC) Count 3.24 mill/uL (4.20-5.40); White Blood Cell (WBC) Count 17.3 thou/uL (4.8-10.8)
[2019-05-29] MEDS: Sodium Chloride 0.9% 1,000 ML IV SCH ×3 (05:16→17:10)
[2019-05-29] MEDS ORDERED: Dextrose 5% in Water 1,000 ML IV PRN (07:27)
[2019-05-29] MEDS ORDERED: Dextrose 50% Abboject 50 ML SYRINGE SLOW IVP PRN ×2 (07:27)
[2019-05-29] MEDS ORDERED: Mag-Al 1200 mg/1200 mg/30 ML UDCUP PO PRN (07:27)
[2019-05-29] MEDS ORDERED: Promethazine HCl 25 MG/ML VIAL IM PRN (07:27)
[2019-05-29] MEDS ORDERED: Acetaminophen 325 MG TAB PO PRN (07:27)
[2019-05-29] MEDS ORDERED: HumaLOG 300 UNITS/3 ML VIAL SC PRN (07:27)
[2019-05-29] MEDS ORDERED: hydrALAZINE 20 MG/ML VIAL SLOW IVP PRN (07:27)
[2019-05-29] MEDS ORDERED: Ondansetron PF 4 MG/2 ML Vial IVP PRN (07:27)
[2019-05-29] MEDS ORDERED: Calcium Carbonate 500 MG ChewTAB PO PRN (07:27)
[2019-05-29] MEDS ORDERED: ACITRETIN 25 MG PO SCH ×2 (07:30→09:00)
[2019-05-29 08:46] LABS: INR-International Normal Ratio 1.2; PTT 37.8 SEC (22.9-36.1)
[2019-05-29] MEDS ORDERED: FLU VACC TS2019-20(65YR UP)/PF 180 MCG/0.5 ML SYRINGE IM ONE (09:00)
[2019-05-29] MEDS ORDERED: Non-Formulary Item 1 EACH (Spironolactone [Spironolactone] 50 MG) PO SCH (09:00)
[2019-05-29] MEDS ORDERED: IMIPRAMINE HCL 50 MG PO SCH (09:00)
[2019-05-29] MEDS: Aripiprazole 10 MG TAB PO SCH (09:18)
[2019-05-29] MEDS: Spironolactone 25 MG TAB PO SCH ×2 (09:18→17:08)
[2019-05-29] MEDS: lamoTRIgine 25 MG TAB PO SCH (09:19)
[2019-05-29] MEDS: Escitalopram Oxalate 10 mg Tablet PO SCH (09:19)
[2019-05-29] MEDS: Famotidine/PF 20 mg/2ml Vial SLOW IVP SCH ×2 (09:20→20:13)
[2019-05-29] MEDS: Famotidine 20 MG TAB PO SCH ×2 (09:20→20:12)
--- NOTE | 2019-05-29 12:05 | HP ---
CHIEF COMPLAINT: Subhepatic fluid collection. HISTORY OF PRESENT ILLNESS: This is a 69-year-old female, who is status post laparoscopic cholecystectomy by me on 05/19/2019, complicated by postoperative bleeding, went back to the operating room for washout and clip placement on the posterior branch of cystic artery. Postoperative course was uncomplicated. She called me this weekend complaining of abdominal pain, had not had a bowel movement for a few days. I recommended magnesium citrate. She took magnesium citrate, had bowel movements and still felt bad, so I had her come to the emergency room. CT angio of the chest reveals no PE. Her CT abdomen shows complex collection in the subhepatic space consistent with abscess, biloma or hematoma. She notes 8/10 sharp pain along her right subcostal edge radiating around to her right back, not associated with nausea, vomiting. She is eating regular food. She is having loose stools now. PAST MEDICAL HISTORY: Includes hypertension, tremors, GERD, peptic ulcer and diabetes. PAST SURGICAL HISTORY: Laparoscopic cholecystectomy, appendectomy, . MEDICATIONS: Metoprolol, imipramine, Mysoline, spironolactone, statin, Abilify, and metformin. ALLERGIES: METHOTREXATE. SOCIAL HISTORY: No smoking, alcohol or other drugs. REVIEW OF SYSTEMS: Ten-system review of systems is otherwise negative except as described above. PHYSICAL EXAMINATION: VITAL SIGNS: Blood pressure 108/70, pulse 97, respirations 16. She is afebrile. HEENT: Sclerae anicteric. Oropharynx clear. NECK: No lymphadenopathy. CHEST: Clear. HEART: Regular rate and rhythm. ABDOMEN: Soft, tender in the right upper quadrant with localized guarding without rebound. LABORATORY DATA: White blood cell count is 17, hemoglobin is 9.4, platelet count is 631. Sodium 132, potassium 4.2, creatinine is 0.62. Her liver function tests are normal. Lipase normal. CT scan as above. ASSESSMENT: Subhepatic fluid collection. Differential as above. PLAN: Percutaneous drainage today. I suspect this is most likely hematoma. If it is in fact hematoma, drainage would be difficult that would be more of an observation. However, need to rule out infection versus biloma. Job ID: [id number]
[2019-05-29] MEDS: HYDROcodone/Acetaminophen 10/325 mg Tablet PO PRN ×2 (12:37→20:23)
[2019-05-29] MEDS ORDERED: Fentanyl 100 MCG/2 ML VIAL ONE (13:57)
[2019-05-29] MEDS ORDERED: Sodium Bicarbonate 2.5 MEQ/5 ML VIAL ONE (13:59)
--- NOTE | 2019-05-29 15:53 | CT ---
CT GUIDED ASPIRATION: HISTORY: Recent cholecystectomy. Fluid is noted in the right upper quadrant, on recent CT. COMPARISON: 05/28/2019. FINDINGS: Successful CT-guided percutaneous aspiration. Dark red/deep blue fluid was aspirated. A total of 30 c c of fluid was collected and appears to be compatible with hemolyzed blood. Sample was sent for evaluation. TECHNIQUE: Consent was obtained to perform a CT-guided percutaneous aspiration of a complex fluid collection inf erior to the right hepatic lobe. The patient was placed in the left lateral decubitus position on the CT gantry. Region of interest was identified. Skin was prepped and draped in sterile fashion. 1% lidocaine, buffered with sodium bicarbonate was used for local anesthesia. Under CT guidance, a 17-gauge 6.8 cm metallic trocar was advanced into the fluid collection. Initially, 10 cc of fluid was aspirated, compatible with hemolyzed blood products. An additional 20 cc was aspirated. The patient tolerated the procedure well. No immediate or postprocedure complications. IMPRESSION: Successful CT-guided percutaneous aspiration. Transcribed Date/Time: 05/29/2019 4:01 PM
[2019-05-29] MEDS: Primidone 50 MG TAB PO SCH (20:13)
[2019-05-29] MEDS ORDERED: Primidone 50 MG TAB PO SCH (21:00)
[2019-05-30] MEDS: Morphine 4 MG/ML VIAL SLOW IVP PRN ×2 (04:22→21:08)
[2019-05-30] MEDS: Sodium Chloride 0.9% 1,000 ML IV SCH (04:23)
[2019-05-30] MEDS: Piperacillin/Tazobactam 3.375 GM in Sodium Chloride 0.9% 100 ML IVPB SCH ×3 (05:26→17:37)
[2019-05-30] MEDS: HYDROcodone/Acetaminophen 10/325 mg Tablet PO PRN ×3 (05:27→17:36)
[2019-05-30 06:11] LABS: ALT (SGPT) 39 U/L (8-55); AST (SGOT) 38 U/L (5-34); Albumin 2.5 g/dL (3.4-4.8); Alkaline Phosphatase 284 U/L (40-110); Anion Gap 11 mmol/L (10-20); BUN (Urea Nitrogen) 7 mg/dL (9.8-20.1); Bilirubin, Total 0.5 mg/dL (0.2-1.2); Calc. Creatinine Clearance 108 mL/min (70-130); Calcium 8.2 mg/dL (7.8-10.44); Carbon Dioxide 24 mmol/L (23-31); Chloride 103 mmol/L (98-107); Estimated GFR-MDRD 82; Globulin 3.2 g/dL (2.4-3.5); Glucose 112 mg/dL (80-115); Potassium 4.1 mmol/L (3.5-5.1); Protein, Total 5.7 g/dL (6.0-8.3); Sodium 134 mmol/L (136-145)
[2019-05-30 06:18] LABS: Band 3 % (5-11); Lymphocytes 14 % (21-51); MDiff Complete? YES; Mean Corpuscular HGB CONC 32.6 g/dL (32.0-36.0); Mean Corpuscular Hemoglobin 29.3 pg (27.0-31.0); Mean Corpuscular Volume 89.6 fL (78.0-98.0); Metamyelocyte 1 % (0-0); Monocytes 5 % (0-10); Myelocyte 1 % (0-0); Neutrophil 76 % (42-75); Nucleated RBC 1 % (0); Platelet Count 653 thou/uL (130-400); Platelet Morphology Comment Appears Increased; RBC Distribution Width 14.2 % (11.5-14.5); Red Blood Cell (RBC) Count 3.09 mill/uL (4.20-5.40); White Blood Cell (WBC) Count 18.4 thou/uL (4.8-10.8)
[2019-05-30] MEDS: Spironolactone 25 MG TAB PO SCH ×2 (08:52→17:37)
[2019-05-30] MEDS: Escitalopram Oxalate 10 mg Tablet PO SCH (08:52)
--- NOTE | 2019-05-30 08:52 | PDOC.GSPN ---
Surgery Progress Note: Subj - Subjective Narrative: Fátima Garcia is a pleasant 69 y/o female who is post op day 11 from a Lap Ban with a post op hematoma. She reports that she is feeling a little better, her shortness of breath has improved and that her pain is being well controlled on Hydrocodone. She describes her pain as a sharp 1-2/10 localized from the RUQ to right mid-axillary line. Morphine did not help her pain. She denies any overnight events. She is very happy that she was able to ambulate to the restroom alone. She has not had a bowel movement for the past 2 days. She was able to most of her breakfast tray this morning and denies any nausea, reflux, or vomiting. Surgery Progress Note: Obj - Vital signs Vital signs: Vital Signs - Most Recent Temp Pulse Resp BP Pulse Ox 98.5 F 80 16 129/81 94 L 05/30/19 07:44 05/30/19 07:44 05/30/19 07:44 05/30/19 07:44 05/30/19 07:44 - Physical Exam General: other (Pt. was seated in the chair beside her bed and in mild distress. She appeared tired and drained.) Cardiovascular: regular rate and rhythm, no murmur Respiratory: clear to auscultation (but taking shallow breaths.), normal expansion, other (Respiratory effort increased but without use of accessory muscles) Abdomen: soft, positive bowel sounds (normoactive), tender (to palpation of the RUQ) Psychiatric: memory intact, speech is normal Wound: other (Incisional wounds have erythema along the borders. The incision in the RUQ no longer has dermabond on the wound is circular and is healing by secondary intention. Other wounds are healing well and show no signs of drainage or bleeding.) Additional exam: - IV catheter placed and running in left forearm. - Mild non-pitting edema of left lower extremity. Surgery Progress Note: Results - Labs Result Diagrams: 05/30/19 05:19 05/30/19 05:19 Lab results: Laboratory Results - last 24 hr 05/30/19 05/30/19 05/30/19 00:18 05:19 05:19 WBC 18.4 H RBC 3.09 L Hgb 9.0 L Hct 27.7 L MCV 89.6 MCH 29.3 MCHC 32.6 RDW 14.2 Plt Count 653 H MPV 7.0 L Neutrophils % (Manual) 76 H Band Neuts % (Manual) 3 L Lymphocytes % (Manual) 14 L Monocytes % (Manual) 5 Metamyelocytes % (Man) 1 H Myelocytes % 1 H Nucleated RBCs # (Man) 1 H Plt Morphology Comment Appears Increased H Sodium 134 L Potassium 4.1 Chloride 103 Carbon Dioxide 24 Anion Gap 11 BUN 7 L Creatinine 0.71 Estimated GFR (MDRD) 82 Glucose 112 POC Glucose 149 H Calcium 8.2 Total Bilirubin 0.5 AST 38 H ALT 39 Alkaline Phosphatase 284 H Serum Total Protein 5.7 L Albumin 2.5 L Globulin 3.2 Albumin/Globulin Ratio 0.8 L 05/30/19 05:22 WBC RBC Hgb Hct MCV MCH MCHC RDW Plt Count MPV Neutrophils % (Manual) Band Neuts % (Manual) Lymphocytes % (Manual) Monocytes % (Manual) Metamyelocytes % (Man) Myelocytes % Nucleated RBCs # (Man) Plt Morphology Comment Sodium Potassium Chloride Carbon Dioxide Anion Gap BUN Creatinine Estimated GFR (MDRD) Glucose POC Glucose 110 Calcium Total Bilirubin AST ALT Alkaline Phosphatase Serum Total Protein Albumin Globulin Albumin/Globulin Ratio Surgery Progress Note: A/P - Problem (1) Status post laparoscopic cholecystectomy Current Visit: Yes Code(s): Z90.49 - ACQUIRED ABSENCE OF OTHER SPECIFIED PARTS OF DIGESTIVE TRACT Status: Acute Assessment and Plan: -Post op Day 11 - Hematoma -patient is showing improvement after CT drain without placement of a percutaneous drain. - Continue to monitor respiratory effort - Her preliminary culture results show a gram neg. talia. Continue abx and adjust after sensitivity results. - Continue IVF Addendum - Physician - Physician Attestation Date/Time: 05/30/19 1006 I personally performed or re-performed the physical examination and medical decision making. I have verified all student documentation or findings, including history, physical exam and/or medical decision making. She feels better. HIDA scan if pain doesn't continue to improve. She did not have bile on CT guided aspiration yesterday, only old blood Continue abx, prelim gram negatives on culture I suspect home tomorrow
[2019-05-30] MEDS: Famotidine 20 MG TAB PO SCH ×2 (08:53→20:58)
[2019-05-30] MEDS: Aripiprazole 10 MG TAB PO SCH (08:53)
[2019-05-30] MEDS: lamoTRIgine 25 MG TAB PO SCH (08:53)
[2019-05-30] MEDS: Famotidine/PF 20 mg/2ml Vial SLOW IVP SCH ×2 (08:53→21:10)
[2019-05-30] MEDS ORDERED: Sodium Chloride 0.9% 1,000 ML IV SCH (10:05)
[2019-05-30] MEDS: Morphine 2 MG/ML SYRINGE SLOW IVP PRN (13:06)
--- NOTE | 2019-05-30 16:17 | PQF ---
EVARISTO LEE BRYAN DAVID MD [id number] SURG B- [id number] CLINICAL DOCUMENTATION IMPROVEMENT CLARIFICATION FORM: ICD-10 Updated PLEASE DO AN ADDENDUM TO THE PROGRESS NOTE WITH ANY DOCUMENTATION UPDATES OR ADDITIONS AND CARRY THROUGH TO DC SUMMARY. THANK YOU. DATE: 05/30/19 ATTN:DR. Eloina ESPOSITO Please exercise your independent, professional judgment in responding to the clarification form. Clinical indicators are provided on the bottom of this form for your review. Please check appropriate box(s): [ X ] Acute Respiratory Failure: [ X] with Hypoxia[ ] with Hypercapnia [ ] Acute On Chronic Respiratory Failure : [ ] with Hypoxia [ ] with Hypercapnia [ ] Acute Respiratory Failure due to: (etiology) [ ] Other diagnosis [ ] Unable to determine In addition, please specify: Present on Admission (POA): [ ] Yes [ X ] No [ ] Unable to determine For continuity of documentation, please document condition throughout progress notes and discharge summary. Thank You. CLINICAL INDICATORS - SIGNS / SYMPTOMS / LABS / RESULTS AND LOCATION IN MR 05/28 ED REPORT : HPI: PT PRESENTS TO ER W CHIEF COMPLAINT OF ABDOMINAL PAIN WITH SHORTNESS OF BREATH. PULSE 97-104, RESP 20-26, O2 91% RA> 96% 1L/NC 05/28 CXR IMPRESSION: BIBASILAR ATELECTASIS 05/28 CT CHEST: IMPRESSION: 2). SMALL BILATERAL PLEURAL EFFUSIONS, RIGHT GREATER THAN LEFT W ADJACENT AIRSPACE DENSITIES. 05/29 PN (RIGOBERTO) HER SHORTNESS OF BREATH HAS IMPROVED , PT WAS SEATED IN THE CHAIR BESIDE HER BED AND IN MILD DISTRESS. SHE APPEARED TIRED AND DRAINED. PHYSICAL EXAM: TAKING SHALLOW BREATHS, RESPIRATORY EFFORT INCREASED BUT WITHOUT USE OF ACCESSORY MUSCLES. RISK: RECENT SURGERY WITH POST OP COMPLICATIONS. ADVANCED AGE (69) (H&P/PARRENT) 05/29 TREATMENTS: SUPPLEMENTAL OXYGEN (NASAL CANULA/ 05/28-05/30) DUONEB ORDERED PRN (05/29) THANK YOU! MARIA FERNANDA 2014 [employer]. All Rights Reserved [email or web address] [phone] (This form is maintained as a part of the permanent medical record) DARIO
[2019-05-30] MEDS: Primidone 50 MG TAB PO SCH (20:58)
[2019-05-31] MEDS: HYDROcodone/Acetaminophen 10/325 mg Tablet PO PRN ×4 (00:01→20:36)
[2019-05-31] MEDS: Piperacillin/Tazobactam 3.375 GM in Sodium Chloride 0.9% 100 ML IVPB SCH ×4 (05:25→17:19)
--- NOTE | 2019-05-31 07:51 | PDOC.GSPN ---
Surgery Progress Note: Subj - Subjective Narrative: Fátima Garcia is a pleasant 69 y/o female who is post op day 12 - Lap Ban with a post op hematoma. - She reports that her pain has slightly improved and is really only aggravated upon movement. At baseline she describes it as a 1-2/10 that jumps to 4/10 sharp pain localized to the RUQ. Hydrocodone continues to control it well. - Her SOB has greatly improved since yesterday. No LE edema. - She continues to not have any bowel movements for 3 days. She was unable to eat dinner due to feeling to full. At home, she normally takes stool softeners and having a delayed bowel movement has been normal for her. She denies any nausea, reflux or vomiting. She was able to ambulate more and walked around the nursing stations last night. She would really like to go home today Surgery Progress Note: Obj - Vital signs Vital signs: Vital Signs - Most Recent Temp Pulse Resp BP Pulse Ox 97.5 F L 82 16 114/73 96 05/31/19 04:24 05/31/19 04:24 05/31/19 04:24 05/31/19 04:24 05/31/19 04:24 - Physical Exam General: no distress, well developed, well nourished, other (Was seated in bed and smiling. Mild pain when moving around the bed.) Cardiovascular: regular rate and rhythm, no murmur Respiratory: clear to auscultation, normal expansion, normal respiratory effort Abdomen: soft, nondistended, positive bowel sounds, appropriately tender Wound: dressing clean,dry,intact, healing well (Without erythema, drainage or blood.) Surgery Progress Note: Results - Labs Result Diagrams: 05/30/19 05:19 05/30/19 05:19 Lab results: Laboratory Results - last 24 hr 05/31/19 05/31/19 00:04 05:22 POC Glucose 111 H 84 Surgery Progress Note: A/P - Problem (1) Status post laparoscopic cholecystectomy Current Visit: Yes Code(s): Z90.49 - ACQUIRED ABSENCE OF OTHER SPECIFIED PARTS OF DIGESTIVE TRACT Status: Acute Assessment and Plan: Ms. Garcia is post-op day 12 - Lap Ban - Patient continues to improve and is starting to become more mobile. Would recommend Miralax to help with bowels, but this can be done at home. Culture results returned positive for E. coli and can also send home with Abx coverage. Recommend discharge. HIDA SCAN SHOWS BILE LEAK-WILL CONSULT GI FOR ERCP Addendum - Physician - Physician Attestation Date/Time: 05/31/19 2524 I personally performed or re-performed the physical examination and medical decision making. I have verified all student documentation or findings, including history, physical exam and/or medical decision making. A/P: Bile leak, on HIDA scan. Will consult GI, NPO after midnight
[2019-05-31] MEDS ORDERED: Polyethylene Glycol 3350 17 GM Packet PO SCH (09:00)
[2019-05-31] MEDS: Aripiprazole 10 MG TAB PO SCH (09:01)
[2019-05-31] MEDS: Famotidine 20 MG TAB PO SCH ×2 (09:01→20:36)
[2019-05-31] MEDS: Spironolactone 25 MG TAB PO SCH ×2 (09:01→17:19)
[2019-05-31] MEDS: lamoTRIgine 25 MG TAB PO SCH (09:01)
[2019-05-31] MEDS: Escitalopram Oxalate 10 mg Tablet PO SCH (09:01)
[2019-05-31] MEDS: Famotidine/PF 20 mg/2ml Vial SLOW IVP SCH ×2 (09:03→20:37)
[2019-05-31] MEDS: Morphine 2 MG/ML SYRINGE SLOW IVP PRN ×2 (09:31→17:25)
[2019-05-31] MEDS: Morphine 4 MG/ML VIAL SLOW IVP PRN (14:57)
--- NOTE | 2019-05-31 15:55 | NM ---
HEPATOBILIARY SCAN: HISTORY: A 69-year-old female with right abdominal pain after laparoscopic cholecystectomy. RADIOPHARMACEUTICAL: Technetium 99m mebrofenin 4.6 millicuries injected intravenously. FINDINGS: There was good tracer extraction by the liver with prompt excretion into the biliary tract and small bowel loops. Delayed images demonstrated abnormal tracer localization under the right lobe of the aline er. IMPRESSION: Findings are consistent with bile leak. Report was called over the telephone to the patient's nurse, Joselyn Gupta RN at 2:47 p.m. CODE CR POS: BEREKET
[2019-05-31] MEDS: Primidone 50 MG TAB PO SCH (20:36)
[2019-06-01] MEDS: Piperacillin/Tazobactam 3.375 GM in Sodium Chloride 0.9% 100 ML IVPB SCH ×5 (00:39→23:27)
[2019-06-01] MEDS: Morphine 4 MG/ML VIAL SLOW IVP PRN (00:39)
--- NOTE | 2019-06-01 01:57 | CON ---
DATE OF CONSULTATION: 05/31/2019 REASON FOR CONSULTATION: Abdominal pain and bile leak. HISTORY OF PRESENT ILLNESS: Mrs. Garcia is a 69-year-old female who underwent a laparoscopic cholecystectomy approximately 2 weeks ago. She had a postoperative hematoma requiring repeat surgery with clipping of one of the cystic arteries. She did well and was discharged home. However, the pain never did resolve. Over the last several days leading up to this admission, she has had increasing right upper quadrant more laterally. She describes the pain as sharp and stabbing at times, worsening with jolting movements or coughing. She denies any nausea or vomiting. There has been no fever. There is no evidence of GI bleeding such as melena, hematochezia, or rectal bleed. The patient presented to the ER. CT scan performed showed a complex fluid collection in the sub right hepatic lobe. Subsequent aspiration was done. HIDA scan performed this morning showed extravasation of radionuclide bile in the subhepatic space, compatible with a bile leak. Currently, she feels fine and was able to ambulate on her own. She denies any nausea, vomiting, or any other abdominal pain. The patient had EGD and colonoscopy earlier this year. The colon exam was normal. EGD showed a pyloric ulcer, likely from NSAID. PAST MEDICAL HISTORY: 1. Adult onset diabetes. 2. Hyperlipidemia. 3. Hypertension. MEDICATIONS: At home include; 1. Aripiprazole 10 mg daily. 2. Atorvastatin 40 mg daily. 3. Imipramine 50 mg at bedtime. 4. Lamotrigine 25 mg daily. 5. Metformin 500 mg daily. 6. Nexium 40 mg daily. 7. Spironolactone 25 mg daily. ALLERGIES: LISINOPRIL AND METHOTREXATE. SOCIAL HISTORY: The patient denies any tobacco or alcohol usage. She is . FAMILY HISTORY: Negative for any known GI problem, liver disease, or GI malignancy. REVIEW OF SYSTEMS: Ten-point review of systems did not show any other pertinent positives or negatives. PHYSICAL EXAMINATION: VITAL SIGNS: Temperature is 98.2, blood pressure 123/76, pulse of 87. GENERAL: She is alert, conversant, no distress. HEENT: Show anicteric sclerae. Oropharynx is clear. NECK: Supple. CV: Shows normal S1, S2. Regular rate and rhythm. CHEST: Shows a breath sound. ABDOMEN: Mildly protuberant, but soft. There is tenderness to palpation in the right upper quadrant, but no rebound or guarding. She does have active bowel sounds. EXTREMITIES: Show no edema. LABORATORY DATA: WBC 18.4, hemoglobin 9.0, and platelet count of 653. Electrolytes within normal range. Creatinine 0.71, bilirubin 0.5, AST 38, ALT 39, alkaline phosphatase 284, lipase of 62. ASSESSMENT: 1. Bile leak with biloma and hematoma from prior surgery. 2. Status post laparoscopic cholecystectomy 2 weeks ago. RECOMMENDATION: ERCP with papillotomy and stent placement. I discussed the indication including risks of the procedure, not limited to bleeding and pancreatitis with Mrs. Garcia. She agrees to proceed. We will schedule for tomorrow. Job ID: [id number]
[2019-06-01] MEDS: HYDROcodone/Acetaminophen 10/325 mg Tablet PO PRN (04:12)
[2019-06-01] MEDS: Morphine 2 MG/ML SYRINGE SLOW IVP PRN ×2 (04:56→09:11)
--- NOTE | 2019-06-01 07:03 | PDOC.GSPN ---
Surgery Progress Note: Subj - Subjective Patient reports: feels better, having loose stools Narrative: Mrs. Garcia is a 69 y/o female who is POD 13 from laproscopic cholecystectomy and prolonged course due to subhepatic hematoma and bile leak per HIDA scan yesterday. She appears better this morning and only reports mild fatigue with well controlled pain (2/10). She reports having several episodes of diarrhea last night that has improved. Ambulation consists of walking to and form bathroom and sitting in the chair a few hours yesterday. She was able to tolerate some regular food yesterday before going NPO at midnight. She denies nausea, vomiting, reflux, dyspnea, and dizziness. Surgery Progress Note: Obj - Vital signs Vital signs: Vital Signs - Most Recent Temp Pulse Resp BP Pulse Ox 98.0 F 88 16 118/74 93 L 06/01/19 04:00 06/01/19 04:00 06/01/19 04:00 06/01/19 04:00 06/01/19 04:00 - Physical Exam General: moderate distress Neck: no lymphadectomy, no masses Cardiovascular: regular rate and rhythm, no murmur Respiratory: clear to auscultation, breath sounds present, other (Had sharp pain on right side with full inspiration.) Abdomen: soft, non tender, nondistended, positive bowel sounds (BS were loud and slightly high pitched. Very active.) Integumentary: no rash Psychiatric: oriented to time, oriented to person, oriented to place Wound: dressing clean,dry,intact, healing well (No purulent drainage or erythema of incisions.) Surgery Progress Note: Results - Labs Result Diagrams: 05/30/19 05:19 05/30/19 05:19 Lab results: Laboratory Results - last 24 hr 06/01/19 06/01/19 00:41 05:32 POC Glucose 112 H 108 Surgery Progress Note: A/P - Plan Plan: Mrs. Garcia is a 69 y/o female who is POD 13 from laproscopic cholecystectomy and prolonged course due to subhepatic hematoma and bile leak per HIDA scan yesterday. -ERCP with papillotomy scheduled today per Dr. Nava. Currently NPO. -Will monitor pain and symptoms post-op -Advance diet and encourage ambulation post-op as tolerated Loose Stools -C. Diff assay ordered Addendum - Physician - Physician Attestation Date/Time: 06/01/19 9858 I personally performed or re-performed the physical examination and medical decision making. I have verified all student documentation or findings, including history, physical exam and/or medical decision making. HIDA showed bile leak. Plan ERCP today.
[2019-06-01] MEDS: Famotidine/PF 20 mg/2ml Vial SLOW IVP SCH ×2 (09:15→21:42)
[2019-06-01] MEDS: lamoTRIgine 25 MG TAB PO SCH (09:20)
[2019-06-01] MEDS: Spironolactone 25 MG TAB PO SCH ×2 (09:21→17:15)
[2019-06-01] MEDS: Escitalopram Oxalate 10 mg Tablet PO SCH (09:21)
[2019-06-01] MEDS: Famotidine 20 MG TAB PO SCH ×2 (09:30→21:41)
[2019-06-01] MEDS: Saccharomyces boulardii 250 MG CAP PO SCH (09:30)
[2019-06-01] MEDS: Aripiprazole 10 MG TAB PO SCH (09:30)
[2019-06-01] MEDS ORDERED: Fentanyl 100 MCG/2 ML VIAL ONE ×2 (10:40→11:02)
[2019-06-01] MEDS ORDERED: Indomethacin 50 MG SUPP PR SCH (10:45)
[2019-06-01] MEDS ORDERED: Indomethacin 50 MG SUPP ONE (10:59)
[2019-06-01] MEDS ORDERED: Iothalamate Meglumine 60% 50 ML VIAL FS ONE (10:59)
[2019-06-01] MEDS ORDERED: Piperacillin/Tazobactam 3.375 GM VIAL ONE (11:00)
[2019-06-01] MEDS ORDERED: Sodium Chloride 0.9% 100 ML ONE (11:02)
[2019-06-01] MEDS ORDERED: Rocuronium Bromide 10 MG/ML (10ML VIAL) ONE (11:48)
[2019-06-01] MEDS ORDERED: Glycopyrrolate 0.2 MG/ML 5 ML SYRINGE ONE (11:48)
[2019-06-01] MEDS ORDERED: Lidocaine 1% PF 5 ML VIAL ONE (11:48)
[2019-06-01] MEDS ORDERED: Dexamethasone 20 MG/5 ML VIAL ONE (11:48)
[2019-06-01] MEDS ORDERED: Succinylcholine Chloride 20 MG/ML 10 ml SYRINGE FS ONE (11:48)
[2019-06-01] MEDS ORDERED: Ondansetron PF 4 MG/2 ML Vial ONE (11:48)
[2019-06-01] MEDS ORDERED: PROPOFOL 200 MG/20 ML VIAL ONE (11:48)
[2019-06-01] MEDS ORDERED: PACU-Morphine 4MG/ML VIAL SLOW IVP PRN (12:05)
[2019-06-01] MEDS ORDERED: Promethazine HCl 25 MG/ML VIAL SLOW IVP PRN (12:05)
[2019-06-01] MEDS ORDERED: Meperidine HCl/PF 25 MG/ML VIAL SLOW IVP PRN (12:05)
[2019-06-01] MEDS ORDERED: Ondansetron HCl/PF 4 MG/2 ML Vial IVP PRN (12:05)
[2019-06-01] MEDS ORDERED: Morphine Sulfate 2 MG/ML SYRINGE SLOW IVP PRN (12:05)
[2019-06-01] MEDS ORDERED: Promethazine HCl 25 MG/ML VIAL IM PRN (12:05)
[2019-06-01] MEDS ORDERED: HYDROmorphone 2 MG/ML VIAL SLOW IVP PRN (12:05)
--- NOTE | 2019-06-01 14:08 | RAD ---
ERCP: Date: 06/01/19 There are 10 fluoroscopic images from ERCP procedure presented. INDICATION: ERCP/stone removal. FINDINGS/IMPRESSION: These images show opacification of a dilated common bile duct. There may be a calculus or obstruction in the lower aspect of this duct, which is not well evaluated on these images. POS: TPC
--- NOTE | 2019-06-01 14:46 | OP ---
DATE OF PROCEDURE: 06/01/2019 PREPROCEDURE DIAGNOSIS: Bile leak on HIDA scan. POSTPROCEDURE DIAGNOSES: 1. Normal cholangiogram, no overt site of bile leak. It may be that there is such a large biloma, may be diffusely diluted. No evidence of filling defects. 2. A 5 cm 11.5-Finnish stent placed across the ampulla after sphincterotomy. RECOMMENDATIONS: 1. Consider radiologic drainage of biloma. We will defer to General Surgery. 2. Repeat ERCP in 6-8 weeks to remove stent. ANESTHESIA: General endotracheal anesthesia. MEDICATIONS: Indocin suppositories 100 mg given to prevent post-ERCP pancreatitis. FLUIDS: The patient was given lactated Ringer's 1 L fluid before as well. PROCEDURE IN DETAIL: The patient was informed of the risks, benefits, and possible complications of endoscopy including perforation, reaction to medication, aspiration. Informed consent was obtained. The patient was brought to endoscopy suite, where she was sedated in gradual fashion. Once she was comfortable and intubated, she was placed in a prone position on a woodwind instrument repairer table. Material Checker films were obtained. The side-viewing duodenoscope was advanced through the esophagus, stomach, and 2nd and 3rd portions of the duodenum and slowly removed. The ampulla was brought into view. There was cannulation of the common bile duct with a wire 1st and injection with full filling of the duct. There were no filling defects seen. There was no overt obvious leak seen in light of the findings of the HIDA scan. A sphincterotomy was performed and a stent was placed, then 11.5-Finnish 5 cm over the guidewire. Good placement and good drainage were documented radiographically endoscopically. After termination of procedure, the scope was removed. The patient tolerated the procedure well. There were no complications. Job ID: [id number]
[2019-06-01] MEDS ORDERED: Aripiprazole 10 MG TAB PO SCH (21:00)
[2019-06-01] MEDS: Primidone 50 MG TAB PO SCH (22:01)
[2019-06-02] MEDS: HYDROcodone/Acetaminophen 10/325 mg Tablet PO PRN ×2 (04:38→11:59)
[2019-06-02] MEDS: Piperacillin/Tazobactam 3.375 GM in Sodium Chloride 0.9% 100 ML IVPB SCH ×2 (05:34→11:59)
--- NOTE | 2019-06-02 06:52 | PDOC.GSPN ---
Surgery Progress Note: Subj - Subjective Patient reports: pain well controlled Narrative: Mrs. Garcia is a 69 y/o female who is POD 14 from laproscopic cholecystectomy and prolonged course due to subhepatic hematoma and bile leak. She is feeling much better today. Pain is well controlled at 3/10 with some soreness in the lower abdomen. She reports an intermittent cough that produced blood x1 after surgery, but this has not recurred. She is consuming full liquid diet well and is ambulating to and from the bathroom without issues. Loose stools have improved. Patient denies nausea, vomiting, reflux, dyspnea, and dizziness. Surgery Progress Note: Obj - Vital signs Vital signs: Vital Signs - Most Recent Temp Pulse Resp BP Pulse Ox 97.8 F 79 18 112/72 94 L 06/02/19 04:10 06/02/19 04:10 06/02/19 04:10 06/02/19 04:10 06/02/19 04:10 - Physical Exam General: no distress ENT: normal mucosa Neck: no lymphadectomy, no masses Cardiovascular: regular rate and rhythm, no murmur, other (pedal pulses are 2+ bilaterally) Respiratory: clear to auscultation, normal expansion (Cough was triggered with deep inspiration.), breath sounds present Abdomen: soft, non tender, nondistended, positive bowel sounds Integumentary: no rash (Skin is warm, dry, and clean.) Psychiatric: oriented to time, oriented to person, oriented to place Wound: dressing clean,dry,intact, healing well (No signs of erythema or purulent draingage at incision sites) Surgery Progress Note: Results - Labs Result Diagrams: 05/30/19 05:19 05/30/19 05:19 Lab results: Laboratory Results - last 24 hr 06/01/19 06/02/19 21:25 05:33 POC Glucose 161 H 108 Surgery Progress Note: A/P - Plan Plan: Mrs. Garcia is a 69 y/o female POD 14 from laproscopic cholecystectomy and prolonged course due to subhepatic hematoma and bile leak. (ERCP with papillotomy performed yesterday without complications. Pain well controlled) -May advance diet to regular diet -Encourage ambulation in the hallway today -Plan to discharge later today as long as she is tolerating diet, ambulating, and is symptom free. Loose Stools (C. Diff assay was negative) -Simply monitor.
[2019-06-02] MEDS: Morphine 2 MG/ML SYRINGE SLOW IVP PRN (09:51)
[2019-06-02] MEDS: Spironolactone 25 MG TAB PO SCH (09:56)
[2019-06-02] MEDS: lamoTRIgine 25 MG TAB PO SCH (09:56)
[2019-06-02] MEDS: Saccharomyces boulardii 250 MG CAP PO SCH (09:56)
[2019-06-02] MEDS: Escitalopram Oxalate 10 mg Tablet PO SCH (09:57)
[2019-06-02] MEDS: Famotidine 20 MG TAB PO SCH (09:57)
[2019-06-02] MEDS: Famotidine/PF 20 mg/2ml Vial SLOW IVP SCH (10:00)
--- NOTE | 2019-06-02 12:12 | PRG ---
DATE OF SERVICE: 06/02/2019 SUBJECTIVE: Ms. Garcia is feeling much better. bedtime, she is tolerating full liquid diet, asked for regular food. She has had no melena. She has had no fever. She is using less pain medication. OBJECTIVE: VITAL SIGNS: Temperature is 98, pulse 76, and blood pressure 108/65. ABDOMEN: Soft and nontender. LABORATORY DATA: None. ASSESSMENT: 1. Bile leak and infected biloma, on antibiotics. 2. Status post endoscopic retrograde cholangiopancreatography with stent placement. RECOMMENDATIONS: 1. Continue antibiotics for infected biloma. 2. Remove stent in 6 to 8 weeks. She is following Dr. Nava for that. At this time, we will follow from a distance. If I can be of any further assistance, please do not hesitate to contact me. We will advance the diabetic diet. Job ID: [id number]
[2019-06-02 12:29] VITALS: BP 110/68; TEMP 98
--- NOTE | 2019-06-03 03:42 | DIS ---
DATE OF ADMISSION: 05/28/2019 DATE OF DISCHARGE: 06/02/2019 ADMISSION DIAGNOSES: 1. Right upper quadrant hematoma, status post laparoscopic cholecystectomy. 2. Bile leak. 3. Postoperative pain. PROCEDURES: 1. Percutaneous drainage of right upper quadrant hematoma shows only old blood, no infection or biloma. 2. Endoscopic retrograde cholangiopancreatography by Dr. Longoria showed no defined cystic duct leak. HOSPITAL COURSE: The patient was admitted with postop pain. Her CT scan showed right upper quadrant collection, either hematoma, biloma or abscess. I had this perc drained, it was only old blood. Because of persistent right upper quadrant pain, she had a HIDA scan, which revealed potential bile leak, so she underwent ERCP. ERCP did not show any obvious bile leak. On the day of discharge, she is doing better. She is ambulatory. She is breathing better. She is tolerating regular food. She is being discharged home. She will follow up with me in the office in 10 days. Prescriptions for [place] and Zofran and Augmentin sent over to [facility] in [place]. Job ID: [id number]
== END 2019-06-02 15:00 | disposition home or self-care (01) | DRG 919 ==
LOC: ERS 15:34 → SURG B 20:11
PROVIDERS: ADMIT Surgery; ATTEND Surgery
PROC: 0F9 Hepatobiliary System and Pancreas, Drainage (ICD-10-PCS; principal; 2019-06-01)
PROC: 0F798DZ Dilation of Common Bile Duct with Intraluminal Device, Via Natural or Artificial Opening Endoscopic (ICD-10-PCS; 2019-06-01)
PROC: BF13YZZ Fluoroscopy of Gallbladder and Bile Ducts using Other Contrast (ICD-10-PCS; 2019-06-01)
DX: K91.870 Postprocedural hematoma of a digestive system organ or structure following a digestive system procedure (principal); J96.01 Acute respiratory failure with hypoxia; Y83.8 Other surgical procedures as the cause of abnormal reaction of the patient, or of later complication, without mention of misadventure at the time of the procedure; E11.9 Type 2 diabetes mellitus without complications; E78.5 Hyperlipidemia, unspecified; I10 Essential (primary) hypertension; Z88.8 Allergy status to other drugs, medicaments and biological substances; G89.18 Other acute postprocedural pain
CPT/HCPCS: 36415; 36416; 71045; 71275; 74177; 74330; 77002; 77012; 78226; 80053; 81003; 83605; 83690; 85025; 85610; 85730; 86850; 86900; 86901; 87040; 87070; 87077; 87086; 87186; 87205; 87324; 87449; 93005; 94760; 96361; 96365; 96375; 96376; A9537; C1769; J2270; J2405; J2543; J3010; J3370; J3490; Q9966; S0028

== ENCOUNTER → 2019-07-21 | Day surgery (SDC) | payer MEDICARE ==
[2019-07-20 13:12] VITALS: BMI 34.7
[2019-07-21 08:41] LABS: #Basophils 0.1 thou/uL (0.0-0.2); #Eosinphils 0.2 thou/uL (0.0-0.7); #Lymphocytes 3.9 thou/uL (1.20-3.40); #Monocytes 0.6 thou/uL (0.11-0.59); #Neutrophils 6.8 thou/uL (1.40-6.50); %Basophils 0.5 % (0.0-1.0); %Eosinophils 1.9 % (0.0-10.0); %Lymphocytes 33.4 % (21.0-51.0); %Monocytes 5.5 % (0.0-10.0); %Neutrophils 58.7 % (42.0-75.0); Hemoglobin 12.1 g/dL (12.0-16.0); Mean Corpuscular HGB CONC 31.9 g/dL (32.0-36.0); Mean Corpuscular Volume 84.7 fL (78.0-98.0); Mean Platelet Volume 6.7 fL (7.4-10.4); Platelet Count 395 thou/uL (130-400); RBC Distribution Width 15.5 % (11.5-14.5); Red Blood Cell (RBC) Count 4.49 mill/uL (4.20-5.40); White Blood Cell (WBC) Count 11.6 thou/uL (4.8-10.8)
[2019-07-21 08:45] LABS: PTT 26.8 SEC (22.9-36.1)
[2019-07-21 08:46] LABS: INR-International Normal Ratio 0.9; Prothrombin Time 11.8 SEC (12.0-14.7)
== END ==
LOC: CT 08:20
PROVIDERS: ATTEND Surgery
DX: R18.8 Other ascites (principal); K91.89 Other postprocedural complications and disorders of digestive system; E11.9 Type 2 diabetes mellitus without complications; K21.9 Gastro-esophageal reflux disease without esophagitis; F32.9 Major depressive disorder, single episode, unspecified; E78.00 Pure hypercholesterolemia, unspecified; M19.90 Unspecified osteoarthritis, unspecified site; Z53.09 Procedure and treatment not carried out because of other contraindication; Z79.82 Long term (current) use of aspirin; Z79.84 Long term (current) use of oral hypoglycemic drugs; Z88.8 Allergy status to other drugs, medicaments and biological substances
CPT/HCPCS: 36415; 85025; 85610; 85730

== ENCOUNTER 2019-07-28 08:44 | Day surgery (SDC) | payer MEDICARE ==
[2019-07-27 14:41] VITALS: BMI 29.5
[2019-07-28] MEDS ORDERED: FLU VACC TS2019-20(65YR UP)/PF 180 MCG/0.5 ML SYRINGE IM ONE (09:00)
[2019-07-28 10:16] VITALS: BP 126/81; TEMP 97.4
[2019-07-28] MEDS ORDERED: Fentanyl 100 MCG/2 ML VIAL ONE (10:17)
[2019-07-28] MEDS ORDERED: Midazolam HCl 2 mg/2 ml Vial ONE (10:17)
[2019-07-28] MEDS ORDERED: Ketorolac Tromethamine 30 MG/ML VIAL ONE (10:19)
[2019-07-28] MEDS ORDERED: Succinylcholine Chloride 20 MG/ML 10 ml SYRINGE FS ONE (10:19)
[2019-07-28] MEDS ORDERED: Ondansetron PF 4 MG/2 ML Vial ONE (10:19)
[2019-07-28] MEDS ORDERED: Lidocaine 1% PF 5 ML VIAL ONE (10:19)
[2019-07-28] MEDS ORDERED: PROPOFOL 200 MG/20 ML VIAL ONE (10:19)
--- NOTE | 2019-07-28 10:54 | CT ---
CT of the abdomen without contrast INDICATION: Preprocedure CT for percutaneous drain placement; history of a right perihepatic fluid co llection COMPARISON: CT abdomen pelvis with contrast dated June 30, 2019 FINDINGS: The perihepatic fluid collection seen along the inferior margin of the right hepatic lobe a nd along the posterior aspect of the right hepatic lobe has significantly decreased in size. Previously this collection in the largest axial plane measured 6.3 x 4.8 cm and now only measures 3.5 x 1.2 cm with a tiny residual amount of fluid present on image 30 of series 2. No prominent inflammatory change evident. There is a stable biliary stent. Cholecystectomy clips are seen within t he right upper quadrant. Pneumobilia is stable. The adrenal glands are normal appearing. Visualized unopacified kidneys are unremarkable appearing. The spleen appears within normal limits. The unopacif ied pancreas is unremarkable appearing. There is some scattered degenerative and osteoarthritic change. IMPRESSION: Near complete resolution of the perihepatic fluid collection seen along the posterior inf erior margin of the right hepatic lobe. Due to the significant decrease in size of the fluid collection, percutaneous drainage is not recommended. Findings were discussed with Dr. Rivera at 10: 30 AM on August 07, 2019
[2019-07-28] MEDS ORDERED: Iothalamate Meglumine 60% 50 ML VIAL FS ONE (14:38)
--- NOTE | 2019-07-28 15:27 | RAD ---
EXAM: XR ERCP DATE: 07/28/2019 12:00 AM INDICATION: Bile leak COMPARISON: Prior ERCP dated June 01, 2019 FINDING: On the initial presented fluoroscopic spot image there is a biliary stent projecting in the region of the distal common bile duct. This has been intervally placed since the comparison dated 06/01/2019. Subsequent images demonstrate cannulation of the common bile duct with retrograde opacifi cation of the mid to proximal common bile duct and proximal intrahepatic ducts. No focal filling defect is evident. There is no extravasation of contrast demonstrated. Subsequent images demonstrate distal migration of the common bile duct catheter with some suspected air bubbles within the mid to proximal common bile duct. There is gradual movement of contrast from the common bile duct into the d uodenum. IMPRESSION:No evidence of extraluminal leak from the common bile duct or clipped cystic duct. Transcribed Date/Time: 07/28/2019 3:32 PM
--- NOTE | 2019-07-28 22:47 | OP ---
DATE OF PROCEDURE: 07/28/2019 PREPROCEDURE DIAGNOSES: History of bile leak with stent placement 2 months ago, now here for removal of stent, confirmation with close of bile leak. POSTPROCEDURE DIAGNOSES: 1. Common bile duct stent was in place and removed endoscopically. 2. Cholangiogram revealed no further filling defects or leak. PROCEDURES: Endoscopic retrograde cholangiopancreatography with removal of biliary stent. ANESTHESIA: General endotracheal anesthesia. PROCEDURE IN DETAIL: The patient was informed of the risks, benefits, and possible complications of endoscopy including perforation, reaction to medication, aspiration. Informed consent was obtained. The patient was brought to endoscopy suite, where she was sedated in gradual fashion. She was intubated and placed in a prone position on the fluoroscopy table. A or rn film was obtained showing stent in the common bile duct. The side-viewing duodenoscope was advanced to the esophagus, stomach, and the second and third portions of the duodenum. The ampulla was brought into view. The stent was grasped with a snare and then removed. The scope was then reintroduced through the bite block and down into the second portion of duodenum. The ampulla was brought into view and the ampulla was cannulated with a 12 mm balloon. Occlusion cholangiogram revealed no further filling defects and revealed no bile leak. There was good drainage of contrast both endoscopically and radiographically. The scope was removed. The patient tolerated the procedure well without complications. Job ID: [id number]
== END 2019-07-28 17:15 | disposition home or self-care (01) ==
LOC: SDC 08:44
PROVIDERS: ATTEND Internal Medicine Gastroenterology
PROC: 0FPB8DZ Removal of Intraluminal Device from Hepatobiliary Duct, Via Natural or Artificial Opening Endoscopic (ICD-10-PCS; principal; 2019-07-28)
DX: Z45.89 Encounter for adjustment and management of other implanted devices (principal); E11.9 Type 2 diabetes mellitus without complications; E78.00 Pure hypercholesterolemia, unspecified; I10 Essential (primary) hypertension; F32.9 Major depressive disorder, single episode, unspecified; Z79.82 Long term (current) use of aspirin; Z79.84 Long term (current) use of oral hypoglycemic drugs; Z79.899 Other long term (current) drug therapy; Z88.8 Allergy status to other drugs, medicaments and biological substances; Z91.018 Allergy to other foods; Z91.09 Other allergy status, other than to drugs and biological substances
CPT/HCPCS: 74150; 74330; J1885; J2001; J2250; J2405; J2704; J3010

== ENCOUNTER 2020-11-24 19:05 | Emergency (ER) | payer MEDICARE | END 2020-11-24 22:00 | disposition home or self-care (01) | LOC: ERS 19:05 | DX: S93.401A Sprain of unspecified ligament of right ankle, initial encounter (principal); S90.31XA Contusion of right foot, initial encounter; S80.811A Abrasion, right lower leg, initial encounter; L03.115 Cellulitis of right lower limb; E11.9 Type 2 diabetes mellitus without complications; Z79.84 Long term (current) use of oral hypoglycemic drugs; Z87.19 Personal history of other diseases of the digestive system; Z79.01 Long term (current) use of anticoagulants; Z79.899 Other long term (current) drug therapy; W01.0XXA Fall on same level from slipping, tripping and stumbling without subsequent striking against object, initial encounter; M79.604 Pain in right leg ==

== ENCOUNTER 2025-05-19 22:13 | Inpatient (IN) | payer MEDICARE ==
[2025-05-20 02:08] LABS: #Basophils 0.06 10x3/uL (0.0-0.2); #Eosinophils 0.25 10x3/uL (0.0-0.7); #Monocytes 1.05 10x3/uL (0.11-0.59); #Neutrophils 9.05 10x3/uL (1.40-6.50); %Basophils 0.5 % (0.0-1.0); %Eosinophils 1.9 % (0.0-10.0); %Lymphocytes 21.0 % (21.0-51.0); %Monocytes 7.9 % (0.0-10.0); %Neutrophils 67.9 % (42.0-75.0); Hematocrit 42.9 % (36.0-47.0); Hemoglobin 13.1 g/dL (12.0-16.0); Mean Corpuscular Hemoglobin 28.0 pg (27.0-31.0); Mean Corpuscular Volume 91.7 fL (78.0-98.0); Platelet Count 225 10x3/uL (130-400); Red Blood Cell (RBC) Count 4.68 mill/uL (4.20-5.40); White Blood Cell (WBC) Count 13.31 10x3/uL (4.8-10.8)
[2025-05-20 02:25] LABS: ALT (SGPT) 27 U/L (Less than 34); AST (SGOT) 35 U/L (11-34); Albumin 3.5 g/dL (3.1-4.5); Alkaline Phosphatase 81 U/L (40-110); Anion Gap 15 mmol/L (10-20); BUN (Urea Nitrogen) 16 mg/dL (9.8-20.1); Bilirubin, Total 0.3 mg/dL (0.3-1.2); Calc. Creatinine Clearance 0 mL/min (70-130); Calcium 8.8 mg/dL (7.8-10.44); Carbon Dioxide 26 mmol/L (23-31); Chloride 100 mmol/L (98-107); Globulin 3.0 g/dL (2.4-3.5); Glucose 203 mg/dL (83-110); Potassium 4.8 mmol/L (3.5-5.1); Sodium 136 mmol/L (136-145)
[2025-05-20 02:36] LABS: INR-International Normal Ratio 1.0; Prothrombin Time 13.5 sec (12.0-14.7)
[2025-05-20 02:37] LABS: PTT 28.9 sec (22.9-36.1)
[2025-05-20] MEDS ORDERED: Albuterol 2.5 MG (3 mL) NEB NEB PRN (08:00)
[2025-05-20] MEDS ORDERED: Guaifenesin DM 100-10/5 ML UDCUP PO PRN (08:00)
[2025-05-20] MEDS ORDERED: Dextrose 50% Abboject 50 ML SYRINGE SLOW IVP PRN (08:00)
[2025-05-20] MEDS ORDERED: Glucagon 1 MG/ML KIT IM PRN (08:00)
[2025-05-20] MEDS: Enoxaparin 40 MG (0.4 mL) SYRINGE SC SCH (10:14)
[2025-05-20] MEDS: Pantoprazole 40 MG DR.TAB PO SCH (10:15)
[2025-05-20] MEDS: lamoTRIgine 25 MG TAB PO SCH (10:15)
[2025-05-20] MEDS: Aspirin 81 mg Enteric Coated Tablet PO SCH (10:16)
[2025-05-20] MEDS: Acetaminophen 325 MG TAB PO SCH (10:16)
[2025-05-20] MEDS: Folic Acid 1 MG TAB PO SCH (10:20)
[2025-05-20 10:28] VITALS: BMI 33.5
[2025-05-20] MEDS ORDERED: Iopamidol-370 76% 500 ML MDV (1 ML CHARGE) ONE (11:49)
[2025-05-20] MEDS ORDERED: Non-Formulary Item 1 EACH (Cephalexin [Keflex] 500 MG Cap) PO SCH (12:00)
[2025-05-20] MEDS: Spironolactone 25 MG TAB PO SCH (16:17)
[2025-05-20] MEDS: Primidone 50 MG TAB PO SCH (21:10)
[2025-05-20] MEDS: Diclofenac 25 MG DR.TAB PO SCH (21:41)
[2025-05-21 05:03] LABS: #Basophils 0.04 10x3/uL (0.0-0.2); #Eosinophils 0.22 10x3/uL (0.0-0.7); #Monocytes 1.08 10x3/uL (0.11-0.59); #Neutrophils 6.46 10x3/uL (1.40-6.50); %Basophils 0.4 % (0.0-1.0); %Eosinophils 2.0 % (0.0-10.0); %Lymphocytes 27.5 % (21.0-51.0); %Monocytes 10.0 % (0.0-10.0); %Neutrophils 59.5 % (42.0-75.0); Hematocrit 40.3 % (36.0-47.0); Hemoglobin 12.9 g/dL (12.0-16.0); Mean Corpuscular Hemoglobin 29.1 pg (27.0-31.0); Mean Corpuscular Volume 91.0 fL (78.0-98.0); Platelet Count 232 10x3/uL (130-400); Red Blood Cell (RBC) Count 4.43 mill/uL (4.20-5.40); White Blood Cell (WBC) Count 10.84 10x3/uL (4.8-10.8)
[2025-05-21 05:28] LABS: Anion Gap 13 mmol/L (10-20); BUN (Urea Nitrogen) 12 mg/dL (9.8-20.1); Calc. Creatinine Clearance 85 mL/min (70-130); Calcium 8.8 mg/dL (7.8-10.44); Carbon Dioxide 27 mmol/L (23-31); Chloride 101 mmol/L (98-107); Glucose 192 mg/dL (83-110); Potassium 4.2 mmol/L (3.5-5.1); Sodium 137 mmol/L (136-145)
[2025-05-21] MEDS: Diphenoxylate HCl/Atropine Tablet PO PRN (20:57)
[2025-05-22 04:49] LABS: #Basophils 0.05 10x3/uL (0.0-0.2); #Eosinophils 0.17 10x3/uL (0.0-0.7); #Monocytes 1.17 10x3/uL (0.11-0.59); #Neutrophils 8.52 10x3/uL (1.40-6.50); %Basophils 0.4 % (0.0-1.0); %Eosinophils 1.3 % (0.0-10.0); %Lymphocytes 20.8 % (21.0-51.0); %Monocytes 9.3 % (0.0-10.0); %Neutrophils 67.5 % (42.0-75.0); Hematocrit 42.5 % (36.0-47.0); Hemoglobin 13.1 g/dL (12.0-16.0); Mean Corpuscular Hemoglobin 28.5 pg (27.0-31.0); Mean Corpuscular Volume 92.4 fL (78.0-98.0); Platelet Count 266 10x3/uL (130-400); Red Blood Cell (RBC) Count 4.60 mill/uL (4.20-5.40); White Blood Cell (WBC) Count 12.62 10x3/uL (4.8-10.8)
[2025-05-22 05:01] LABS: Anion Gap 14 mmol/L (10-20); BUN (Urea Nitrogen) 13 mg/dL (9.8-20.1); Calc. Creatinine Clearance 70 mL/min (70-130); Calcium 8.9 mg/dL (7.8-10.44); Carbon Dioxide 25 mmol/L (23-31); Chloride 101 mmol/L (98-107); Glucose 194 mg/dL (83-110); Potassium 4.5 mmol/L (3.5-5.1); Sodium 135 mmol/L (136-145)
[2025-05-22 14:16] VITALS: BP 132/60; TEMP 97.8
[2025-05-23] MEDS ORDERED: FLU (Fluad Triv) 25-26 (65UP)PF 45 MCG/0.5 ML Syringe IM ONE (11:45)
== END 2025-05-22 17:15 | disposition home or self-care (01) | DRG 189 ==
LOC: ERS 22:13 → 2NO 05-20 07:05 → OBSVTOIN 05-21 17:56
PROVIDERS: ADMIT Internal Medicine; ATTEND Internal Medicine
PROC: 5A09357 Assistance with Respiratory Ventilation, Less than 24 Consecutive Hours, Continuous Positive Airway Pressure (ICD-10-PCS; principal; 2025-05-21)
DX: J96.01 Acute respiratory failure with hypoxia (principal); Z88.8 Allergy status to other drugs, medicaments and biological substances; Z91.018 Allergy to other foods; E11.9 Type 2 diabetes mellitus without complications; Z98.890 Other specified postprocedural states; F41.9 Anxiety disorder, unspecified; F32.A Depression, unspecified; G25.0 Essential tremor; L40.9 Psoriasis, unspecified; M19.90 Unspecified osteoarthritis, unspecified site; Z79.899 Other long term (current) drug therapy
CPT/HCPCS: 36415; 36416; 71045; 71275; 80048; 80053; 83880; 84484; 85025; 85610; 85730; 93005; 94640; 94660; 94760; 96372; G0378; J1650; J1815; Q9967